=== PATIENT | female | born 1950 | race Caucasian/White ===

== ENCOUNTER 2024-03-06 03:03 | Inpatient (IN) | payer OTHER, SELFPAY ==
[2024-03-05 22:47] VITALS: BP 87/62
--- NOTE | 2024-03-05 23:13 | ED.GENMED ---
History of Present Illness
General
Chief Complaint: Change in Mental Status
Source: patient and family
Exam Limitations: none
Time Seen by Provider: 03/05/24 23:02
History of Present Illness
History of Present Illness:
See MDM
Past History
Past History
ED Past Medical History: None
ED Past Surgical History: None
Social History
Tobacco: Non-smoker
Alcohol: None
Phy Exam
Physical Exam
Physical Exam:
See MDM
Sepsis
Sepsis Screening
Sepsis Assessment: Severe Sepsis
Sepsis Screening: Hypotension and Sustained Hypotension-SBP <90,MAP<65, or SBP decrease 40mmHg or more
Sepsis Screen
Sepsis Screen: Severe Sepsis
Date: 03/06/24
Time: 00:15
Course
Orders/Labs/Results
Orders:
Orders
03/05/24 23:12
EKG [Electrocardiogram (*1)] Urgent
Reason for Study: Palpitations
EKG- Treatment ONCE
03/05/24 23:13
0.9% Sodium Chloride 1000 ml [Nss] 1,000 ml IV BOLUS
03/05/24 23:16
EKG [Electrocardiogram (*1)] Urgent
Reason for Study: Tachycardia
EKG- Treatment ONCE
03/05/24 23:52
CPK [Creatine Phosphokinase] Urgent
Complete Blood Count/With Diff Urgent
Comprehensive Metabolic Panel Urgent
Magnesium Urgent
TSH Reflex To Free T4 Urgent
Urinalysis Reflex To Culture Urgent
Date Specimen was Collected: 03/05/24
Time Specimen was Collected: 23:50
Urine Microscopic Reflex Cult Urgent
Urine Culture Urgent
RAZ Source: U
Specimen Description:
Date Specimen was Collected: 03/05/24
Time Specimen was Collected: 23:50
03/06/24 00:27
CR Chest - 2 Views Urgent
Comment:
Reason For Exam: SOB
03/06/24 00:49
Lactic Acid Urgent
03/06/24 00:50
0.9% Sodium Chloride 1000 ml [Nss] 1,000 ml IV BOLUS
03/06/24 00:53
0.9% Sodium Chloride 1000 ml [Nss] 1,000 ml IV BOLUS
03/06/24 00:54
*Vancomycin 2,000 mg Loading Dose (consider for >/= 70 kg) Vancomycin [Vancocin] 2,000 mg 0.9% Sodium Chloride 500 ml [Nss] 500 ml IV NOW
Zosyn 3.375 grams IVPB NOW Piperacillin/Tazo 3.375 Gram [Zosyn] 3.375 gram in 50 ml IV NOW
03/06/24 01:00
CT Head W/o Iv Contrast Urgent
Reason For Exam: altered
Lactic Acid Q4H
Comment: CANCEL 2nd LACTIC ACID IF 1st LACTIC ACID IS LESS THAN 2
03/06/24 05:00
Lactic Acid Q4H
Comment: CANCEL 2nd LACTIC ACID IF 1st LACTIC ACID IS LESS THAN 2
Abnormal Lab Results
03/05/24
23:52
WBC 49.0 H* 10^3/uL
(4.8-10.8)
RBC 5.62 H 10^6/uL
(4.20-5.40)
MCV 80.6 L fL
(81.0-99.0)
RDW 15.7 H %
(11.5-14.5)
MPV 11.0 H fL
(7.4-10.4)
Abs Immat Gran (auto) 1.6 H 10^3/uL
(0-0.05)
Absolute Neuts (auto) 44.7 H 10^3/uL
(1.4-6.5)
Absolute Monos (auto) 1.1 H 10^3/uL
(0.1-0.6)
Immature Gran % 3.3 H %
(0-0.5)
Neutrophils % 91.3 H %
(42.2-75.2)
Lymphocytes % 3.1 L %
(20.5-51.1)
Sodium 130 L mmol/L
(135-145)
Chloride 88 L mmol/L
(98-107)
BUN 62 H mg/dl
(7-17)
Creatinine 1.6 H mg/dL
(0.6-1.0)
Glucose 154 H mg/dl
(70-99)
Calcium 8.3 L mg/dl
(8.4-10.2)
Magnesium 2.6 H mg/dl
(1.6-2.3)
AST 80 H U/L
(14-36)
Alkaline Phosphatase 166 H U/L
(38-126)
Creatine Kinase 413 H U/L
(30-135)
Total Protein 5.9 L g/dl
(6.3-8.2)
Albumin 2.8 L g/dl
(3.5-5.0)
Urine Ketones Trace A
(Negative)
Ur Occult Blood Reflex 2+ A
(Negative)
Urine Bilirubin 1+ A
(Negative)
Leukocyte Esterase Rfl Trace A
(Negative)
Urine RBC 11-15 A /HPF
(0-2)
Urine Bacteria (Reflex) Many A
(Negative)
03/05/24 23:52
03/05/24 23:52
Vital Signs
Initial and Last Documented VS:
Initial Vital Signs
Temp BP
97.7 F 87/62
03/05/24 22:47 03/05/24 22:47
Last Documented Vital Signs
Temp Pulse Resp BP Pulse Ox
99.4 F 83 17 84/58 96
03/05/24 23:11 03/06/24 00:29 03/06/24 00:29 03/06/24 00:29 03/06/24 00:29
MDM/Problems Addressed
Differential Diagnosis Includes:
HPI and MDM Narrative:
73-year-old female presenting with family for evaluation of weakness, fatigue and altered mental status. On arrival, patient found to have pale and blue and cool extremities. Patient is smiling and offering no complaints. Family indicating that
she has a learning disability but is self-sufficient lives on her own. However, family is worried that she is having trouble caring for self. Patient found to be tachycardic. It is possible that her cardiac arrhythmia is causing decreased preload
and causing the cool and mottled skin. She is afebrile.
Will give IV fluids and obtain EKG to assess the cardiac arrhythmia discussed whether or not this is A-fib versus SVT
Physical exam
General: Well appearing and non-toxic
HEENT: protecting airway. Dry mucous membrane
Neck: appears supple
CV: No evidence of cyanosis. Tachycardic and regular
Resp: No accessory muscle use
Abd: Non-distended
Extremities: No deformities
Neuro: alert. No focal deficits
Psych: Normal affect
Skin: Cool and pale distal extremities
Problems Addressed including Acute and Chronic Conditions affecting care:
1. Altered mental status
Acuity: acute
Prognosis: stable
Details: Given the fall, will obtain CT head
2. Tachycardia
Acuity: acute
Prognosis: stable
Details: Will obtain EKG and decide whether this is A-fib with RVR versus SVT
3. Pneumonia
Acuity: acute
Prognosis: stable
Details: Patient started on IV antibiotics
4. [ ]
Acuity: acute
Prognosis: stable
Details:
5. [ ]
Acuity:
Prognosis:
Details:
Updates
11:20 PM EKG consistent with SVT. Right after the EKG, patient auto converted to sinus rhythm
Patient intermittently goes into sinus rhythm and SVT. Blood work returning showing significant leukocytosis. Blood pressure remains low despite IV fluids. Will continue IV fluids and obtain lactic acid. Chest x-ray concerning for left lower
lobe pneumonia. Will start IV antibiotics and
Differential Diagnosis (but not limited to): A-fib with RVR, SVT, TIA
Testing considered: Troponin
Drug therapy (if applicable): OTC meds, please see d/c instruction regarding Rx drugs
Amount and/or Complexity of Data Reviewed
Clinical info obtained from: Patient
External data reviewed: N/A
Labs I independently reviewed (but not limited to): Leukocytosis
Radiology: X-ray independently reviewed: Left lower lobe pneumonia
Pulse Ox: not hypoxic
EKG independently reviewed: SVT, normal axis, no STEMI
Screen Printer: Tachycardic and regular
Critical Care: N/A
Risk of Complication:
Social Determinants of health: Good social support
Discussed with other providers: Hospitalist
Escalation of Care includes Admit/Obs: Given significant lab abnormalities and concern for pneumonia, will
Occasional wrong word or 'sound a like' substitutions may have occurred due to the inherent limitations of voice recognition software. Read the chart carefully and recognize, using context, where substitutions have occurred.
*Critical Care Note
Total Time (30-74mins, 75-104mins- exclusive of procedures): Not Applicable
ED Attending Note
-
Portions of this chart may have been created with voice recognition software.� Occasional wrong word or��sound alike� substitutions may have occurred due to the inherent limitations of voice recognition software.
Discharge Plan
Departure
Patient Disposition: Admit
Date of Disposition: 03/06/24
Time of Disposition: 00:56
Admit to: IMU
Presentation/result/management discussed w/ accepting MD/DO: Hospitalist
Discharge Problem:
PNA (pneumonia), SVT (supraventricular tachycardia)
Prescriptions:
No Action
anastrozole 1 mg Tablet
1 mg PO DAILY
paroxetine HCl 10 mg Tablet
10 mg PO DAILY
omeprazole 20 mg Capsule,Delayed Release(Dr/Ec)
20 mg PO DAILY
calcium 100 mg Capsule
1,500 mg PO DAILY
cholecalciferol (vitamin D3) [Vitamin D3] 50 mcg (2,000 unit) Capsule
50 mcg PO DAILY
Trianterene-Hctz
37.5
Referrals:
Julieta Avelar MD [Family Provider] -
Interventions
Interventions:
*Risk Screen - Suicide Last Done: 03/05/24 22:47
*General Assessment Last Done: 03/05/24 22:47
*Neglect/Abuse Screening Last Done: 03/05/24 22:47
*ED COVID-19 Vaccine History Last Done: 03/05/24 22:47
ED- Pulmonary Assessment Last Done: 03/05/24 23:30
ED- Neurological Assessment Last Done: 03/05/24 23:30
ED- Cardiac Assessment Last Done: 03/05/24 23:30
Discharge Date and Time
Print Language: BELARUSIAN
[2024-03-05 23:20] VITALS: BMI 28.6
[2024-03-05 23:22] VITALS: BP 83/54
[2024-03-05] MEDS: NSS 1000 IV (23:42)
[2024-03-05 23:44] VITALS: BP 68/48
[2024-03-05 23:55] VITALS: BP 71/45
[2024-03-06] VITALS (91 sets, daily range): BP systolic 72–137; BP diastolic 38–112; BMI 29.8
[2024-03-06 00:08] LABS: Urine Albumin Trace (Neg - Trace); Urine Bilirubin 1+ (Negative); Urine Character Slightly Cloudy (Clear); Urine Color Yellow; Urine Glucose Negative (Negative); Urine Ketone Trace (Negative); Urine Leukocyte Trace (Negative); Urine Nitrite Negative (Negative); Urine Occult Blood 2+ (Negative); Urine Urobilinogen Negative (Neg - 1+)
[2024-03-06 00:15] LABS: Hematocrit 45.3 % (37.0-47.0); Hemoglobin 15.2 g/dL (12.0-16.0); Mean Corp Hgb Conc. 33.6 g/dL (33.0-37.0); Mean Corpuscular Volume 80.6 fL (81.0-99.0); Platelet Count 321 10^3/uL (130-400); Red Blood Cell Count 5.62 10^6/uL (4.20-5.40); Red Cell Dist. Width 15.7 % (11.5-14.5)
[2024-03-06 00:16] LABS: Urine Bacteria Many (Negative)
[2024-03-06 00:37] LABS: % Basophils 0.1 % (0-2); % Immature Granulocytes 3.3 % (0-0.5); % Lymphocytes 3.1 % (20.5-51.1); % Monocytes 2.2 % (1.7-9.3); % Neutrophils 91.3 % (42.2-75.2); Absolute Basophils 0.1 10^3/uL (0-0.2); Absolute Immature Granulocytes 1.6 10^3/uL (0-0.05); Absolute Lymphocytes 1.5 10^3/uL (1.2-3.4); Absolute Monocytes 1.1 10^3/uL (0.1-0.6); Absolute Neutrophils 44.7 10^3/uL (1.4-6.5); Nucleated Red Blood Cells % 0 %
[2024-03-06 00:38] LABS: ALT (SGPT) 26 U/L (0-35); AST (SGOT) 80 U/L (14-36); Albumin 2.8 g/dl (3.5-5.0); Alkaline Phosphatase 166 U/L (38-126); Blood Urea Nitrogen 62 mg/dl (7-17); Calcium 8.3 mg/dl (8.4-10.2); Carbon Dioxide 29 mmol/L (22-30); Chloride 88 mmol/L (98-107); Creatine Phosphokinase 413 U/L (30-135); Estimated Creatinine Clearance 31 ml/min; Glucose 154 mg/dl (70-99); Magnesium 2.6 mg/dl (1.6-2.3); Potassium 3.6 mmol/L (3.5-5.1); Sodium 130 mmol/L (135-145); Total Bilirubin 0.5 mg/dl (0.2-1.3); Total Protein 5.9 g/dl (6.3-8.2); eGFR 34.27
[2024-03-06] MEDS: NSS 1000 IV ×3 (00:50→12:36)
[2024-03-06] MEDS: ZOSYN 50 IV ×4 (01:00→18:32)
[2024-03-06] MEDS: VANCOCIN 540 MG IV (01:01)
[2024-03-06] MEDS: LEVOPHED 250 IV ×3 (01:43→15:07)
[2024-03-06 01:58] LABS: TSH Reflex To Free T4 1.76 uIU/ml (0.47-4.68)
[2024-03-06 01:59] LABS: Lactic Acid 2.3 mmol/L (0.7-2.0)
--- NOTE | 2024-03-06 02:08 | HPS.HSE ---
Family Physician
-
Family Physician: Julieta Avelar
Chief Complaint
-
Altered mental status and recent fall
History of Present Illness
This is a 73-year-old female with past medical history significant for breast cancer status post left mastectomy, chemotherapy and radiation, history of GERD, hypertension, anemia as well as mild to moderate intellectual developmental delay will
lives independently and was brought to the emergency department by family following being found down at home.
Patient claimed that she had a fall.� The exact circumstances of the fall is unclear.� According to sister who is POA, the patient has been having some altered mental status over the last few days.� The last time she saw the patient physically the
patient had an episode of bowel incontinence after a meal x 1 but no diarrhea.� She seemed to be more sluggish in her speech pattern.� She seems to have more blank skewed stairs and has been mostly sitting down instead of ambulating with a walker as
she usually does. She reported that she called her on the phone today and she did not sound her normal self. She had another family member check up on her and patient was found down laying on her abdomen. She was responsive. They could not get
an immediate pulse rate or pulse oximetry. As the patient was far from usual self she was brought to ED for further evaluation.
Patient herself denies all symptoms and only answers no to any questions regarding her wellbeing. She does not endorse cough, fevers, chills, headaches, abdominal pain, nausea, vomiting or diarrhea. She does not endorse any joint swelling, aches
or pain. She does not endorse dysuria, incontinence or frequency.
On arrival in the emergency department patient had intermittent episodes of supraventricular tachycardia with heart rate as high as 167. It was regular. She is currently in normal sinus rhythm. Blood pressure 80/50 with a pulse of 87 and satting
99% on room air. She has a low-grade temp of 99.4. White count was 49 hemoglobin 13 platelet count 321. Electrolytes and BUN/creatinine elevated at 60/1.6. U/A was unremarkable. CK 413, AST 80 and alkphos 150. Lactate 2.3. X-ray of the had
streaking artifacts from the breast implant, could not exclude focal infiltrates in the left lung but as currently its unrevealing.
Medical History
Past Medical History
Past Medical History: Reports Cancer (Breast cancer status post radical mastectomy on the left, XRT and chemotherapy with eventual breast reconstruction surgery and discharge from oncology over 2 years ago.), GERD and HTN
Past Surgical History: Reports Other (Left breast mastectomy)
Social History
Tobacco: Non-smoker
Alcohol: None
Drug: None
Personal: Single
Living: Alone
Employment: Disabled
Family History
Family History: Not pertinent
Allergies / Home Medications
Allergies reflects when Allergies were last updated in [facility].
Home Medications with original date entered in [facility]
Allergy/Medication List:
Allergies
Allergy/AdvReac Type Severity Reaction Status Date / Time
No Known Allergies Allergy Verified 03/05/24 23:43
Home Medications
Trianterene-Hctz 37.5 03/06/24
anastrozole 1 mg tablet 1 mg PO DAILY 03/06/24
calcium 100 mg capsule 1,500 mg PO DAILY 03/06/24
cholecalciferol (vitamin D3) 50 mcg (2,000 unit) capsule (Vitamin D3) 50 mcg PO DAILY 03/06/24
omeprazole 20 mg capsule,delayed release 20 mg PO DAILY 03/06/24
paroxetine HCl 10 mg tablet 10 mg PO DAILY 03/06/24
Review of Systems
-
History Source: Patient and Family
Constitutional: Reports No Symptoms
EENT: Reports No Symptoms
Respiratory: Reports No Symptoms
Cardiac: Reports No Symptoms
Abdomen/GI: Reports No Symptoms
: Reports No Symptoms
Musculoskeletal: Reports No Symptoms
Skin: Reports No Symptoms
Neurological: Reports Weakness and Other (altered speech)
Endocrine: Reports No Symptoms
Hematologic/Lymphatic: Reports No Symptoms
Psych: Reports No Symptoms
Physical Exam
Vital Signs
Vital Signs
Temp Pulse Resp BP Pulse Ox
99.4 F 83 17 84/58 96
03/05/24 23:11 03/06/24 00:29 03/06/24 00:29 03/06/24 00:29 03/06/24 00:29
Physical Exam
General: No Apparent Distress, Comfortable and Slurred Speech
HEENT: NormoCephalic, Anicteric, Moist mucous membranes, PERRLA, Neck Nontender and Other (reduced range of motion in the neck on all axis); No Neck Mass
Respiratory: Clear
Cardiac: S1/S2 and Regular Rhythm
Breast: Deferred by me
GI: Soft, Non Tender, Non Distended and Normal Bowel Sounds
Rectal: Deferred by Provider
Genito-urinary: Clear Urine
Musculoskeletal: No Clubbing, No Cyanosis and No Edema
Skin: Warm
Neuro: Alert, Oriented (oriented to person and place), Nonfocal/grossly intact and Slurred Speech (delayed responses suggestive of expressive aphasia. No obvious dysarthria. )
Hematologic/Lymphatic: No Lymphadenopathy
Psych: Calm
Laboratory Results
-
03/05/24 23:52
03/05/24 23:52
Laboratory Results
Lactic Acid 2.3 mmol/L (0.7-2.0) H 03/06/24 00:53
Total Bilirubin 0.5 mg/dl (0.2-1.3) 03/05/24 23:52
AST 80 U/L (14-36) H 03/05/24 23:52
ALT 26 U/L (0-35) 03/05/24 23:52
Alkaline Phosphatase 166 U/L (38-126) H 03/05/24 23:52
Data Reviewed
-
Diagnostic Radiology: Image Personally Visualized and interpreted
Medical Tests (Nuc Med, Echo, EKG etc): Image Personally Visualized and interpreted
Lab Data: Labs Reviewed by me
Old Records: Reviewed
Impression/Plan
-
IMPRESSION:
This is a 73 y.o female with h/o breast ca s/p treatment who has moderate intellectual developmental delay and has been living alone for over 1 year now presents to ED for altered mental status and being found down at home. No trauma. Head CT is
negative. Found to be hypotensive with pallor discoloration of distal digits. Leukocytosis to 49. Lactate 2.3. BUN/Cr 60/1.6. CPK 400. Intermittent SVT. BP not particularly improved after 2 L NS. Started on broad spectrum abx.
PLAN:
1. Hypotension - Unclear etiology at this time. With the elevated WBC and lactate there is concern for sepsis. No recent hospitalizations. Unclear source as patient has no focal symptoms. No headache but limited neck ROM, cannot call it
meningitis. She is afebrile here.
- admit to imu
- will give total of 3 L NS and start LR at 100 ml/hr (i suspect significantly prerenal with BUN 60, Cr 1.6)
- blood cultures x 2
- continue IV vancomycin and zosyn for now
- check procalcitonin
- hold home bp meds
- check am cortisol. TSH normal
- CT chest
- ID consult
2. AMS - Worsening from baseline but no focal deficits on exam
- improve bp with fluids and pressors
- check covid and flu
- neurochecks q 6
- mri in am
3. SVT - intermittent SVT. Regular, likely reentrant. Lasts seconds
- telemetry for now
- control bp and give iv fluids
- consider cardiology consult if persistent
- keep K > 4, Mag > 2
4. Elevated LFT. AST 80. Alkphos elevated. H/O breast ca, no etoh.
- trend lft and alksphos
- trend cpk
- check ggt
PT eval
Case management
GI PPX - pantoprazole iv daily
DVT PPX - heparin sq q 8
Code status - DNR
--- NOTE | 2024-03-06 02:10 | DOWNTIME ---
There was a [employer] In Downtime on 03/06/2024 from 0100 to 03/06/2024 at 0205 . Downtime documentation of patient's care, including medication administrations, has been reconciled in the electronic record per guidelines. Refer to the
patient's paper chart under the miscellaneous tab to see printed paper medication records and downtime forms.
[2024-03-06 03:06] LABS: COVID-19 Antigen Negative (Negative)
[2024-03-06] MEDS: LR 1000 IV ×2 (03:50→16:16)
[2024-03-06] MEDS: NSS 500 IV (05:06)
[2024-03-06 05:11] LABS: Hematocrit 36.9 % (37.0-47.0); Hemoglobin 12.7 g/dL (12.0-16.0); Mean Corp Hgb Conc. 34.4 g/dL (33.0-37.0); Mean Corpuscular Hgb 28.1 pg (27.0-31.0); Mean Corpuscular Volume 81.6 fL (81.0-99.0); Mean Platelet Volume 11.4 fL (7.4-10.4); Platelet Count 294 10^3/uL (130-400); Red Blood Cell Count 4.52 10^6/uL (4.20-5.40); Red Cell Dist. Width 15.5 % (11.5-14.5); White Blood Cell Count 49.9 10^3/uL (4.8-10.8)
--- NOTE | 2024-03-06 05:24 | W.PN.UPDATE ---
Update Note
Progress Note Update
RN notified [employer], BP 78/46 map of 57. Increased Levophed drip to 10mcg, on LR 100cc/hr. Asymptomatic. Will add 500 CC NSS, Bladder scan, Albumin 25g and Transfer to ICU per protocol.
[2024-03-06 05:27] LABS: Lactic Acid 1.5 mmol/L (0.7-2.0)
[2024-03-06 05:29] LABS: Creatine Phosphokinase 346 U/L (30-135)
[2024-03-06] MEDS: FLEXBUMIN 100 IV ×2 (05:37→11:22)
[2024-03-06 06:08] LABS: Procalcitonin 2.16 ng/ml (0.0-0.25)
[2024-03-06] MEDS: HEPARIN 5000 UNITS SC ×3 (07:59→23:58)
[2024-03-06] MEDS: PROTONIX IV 40 MG IV (08:00)
--- NOTE | 2024-03-06 08:13 | PHA.VAN.IN ---
Assessment
- Assessment
Renal Function: Unknown baseline
Concomitant Antimicrobials: piperacillin/tazobactam
Plan
- Plan
Initial / Loading Dose: 2000mg - 03/06 01:01
Maintenance Regimen: dosing by level
Monitoring: random 03/07 06
Pharmacokinetics Vancomycin I
- -
Patient Age: 73
Patient Sex: Female
Vancomycin Day #: 1
Indication: Pulmonary/Respiratory
Requesting Provider: Dr. Gotti
Pertinent Antimicrobial Allergies:
NKDA
Height / Weight:
Height 5 ft 3 in
Actual Weight 73.1 kg
- Vital Signs / Lab Results
Temp Pulse Resp BP Pulse Ox
97.0 F 82 15 94/44 90
03/06/24 07:52 03/06/24 06:00 03/06/24 02:45 03/06/24 05:45 03/06/24 06:00
Lab Results - Hematology
03/05/24 03/06/24
23:52 04:50
WBC 49.0 H* 49.9 H*
Lab Results - Chemistry
03/05/24
23:52
BUN 62 H
Creatinine 1.6 H
Estimated Creat Clear 31
Albumin 2.8 L
03/06/24 03/06/24 03/06/24
00:53 01:00 04:50
Lactic Acid 2.3 H Cancelled 1.5
Lab Results - Urine
03/05/24
23:52
Urine Nitrite (Reflex) Negative
Leukocyte Esterase Rfl Trace A
Urine WBC (Reflex) 6-10
Ur Squamous Epith Cells 3-5
Urine Bacteria (Reflex) Many A
Microbiology Results
03/06/24 02:37 Influenza Types A & B (BETHEL) - Final
Nasal Swab Negative for Influenza A & B, NAAT
Negative results must be combined with clinical observations
and patient history.
Nucleic Acid Amplification test (NAAT)performed on the
[employer] platform.
--- NOTE | 2024-03-06 08:30 | CON.INTV ---
Consultation
Consultation Request
Date/Time Consultation Requested: 03/06/2024
Date/Time Consultation Performed: 03/06/2024 - 828
Requesting Provider: Dr. Araiza
Performing Provider: Dr. Palma
Reason for Consultation: Shock on vasopressors
Medical History
-
Chief Complaint: Found on floor
History of Present Illness:
73-year-old female with a history of left-sided breast cancer s/p chemotherapy/XRT followed by reconstructive breast surgery, GERD, hypertension, intellectual developmental delay and anemia who presents with being found unresponsive on the floor.
According to the family, the patient has fallen a few times over the last few weeks. They believe that she fell prior to arrival as well and was on the floor for about 4-5 hours. History obtained from the sister, Rhea, and [id number], Kerwin.
Patient then brought to the ER for further evaluation. In the ER she was afebrile to 97.7 �F, pulse rate 167, breathing at 18 breaths/min, BP 87/62 and saturating 95% on room air. Initial EKG showed SVT. Labs showed leukocytosis to 49, Hb 15.2,
sodium 130, chloride 88, creatinine 1.6, lactate 2.3, AST 80, CK4 13, TSH 1.76, urinalysis showed trace leukocyte esterase and she was COVID-19 antigen negative. Urine and blood cultures were collected. Initial CXR showed subsegmental atelectasis.
Head CT showed no acute intracranial abnormality. Chest CT showed bilateral lower lobe subsegmental atelectasis with no evidence of pneumonia. In the ER she was given Zosyn, vancomycin, 3 L total of IVF NS 0.9%, and due to persistent hypotension
she was started on Levophed. She was admitted to the ICU for further care and kindergarten tutor services consulted for additional management/recommendations.
When I saw the patient this morning she was awake, in good spirits, with her sister, Rhea, and [id number], Kerwin, at bedside. Per the sister, she was not acting herself the day before coming here and she was having some slurred speech. She is
much more herself as of today. She says that she does not really take care of herself and has a history of increased LDL but does not take a cholesterol medication. She says yesterday her left breast also was increased in size, and that is the
breast that was reconstructed. Currently, heart rate 81, BP 105/56 and saturating 95% on 2 L/min.
PMHx: Breast cancer s/p left mastectomy, chemotherapy and radiation s/p reconstructive breast surgery, GERD, hypertension, anemia, intellectual developmental delay
PSHx: Reconstructive breast surgery (left) + left breast mastectomy
Past Medical History
Past Medical History: Other (Above as per HPI)
Past Surgical History: Other (Above as per HPI)
Social History
Tobacco: Non-smoker
Alcohol: None
Drug: None
Personal: Single
Living: Alone
Employment: Disabled
Family History
Family History: Reviewed & Not Pertinent
Allergies / Home Medications
Allergies
Allergy/AdvReac Type Severity Reaction Status Date / Time
No Known Allergies Allergy Verified 03/05/24 23:43
Home Medications
�Medication �Instructions �Recorded �Confirmed �Last Taken �Type
ascorbic acid (vitamin C) 500 mg 500 mg PO DAILY 03/06/24 03/06/24 Unknown History
tablet (Vitamin C)
calcium carbonate (Tums) 200 mg PO QIDPRN PRN gerd 03/06/24 03/06/24 Unknown History
latanoprost 0.005 % eye drops 1 drp BOTH EYES HS 03/06/24 03/06/24 Unknown History
naproxen sodium 220 mg tablet 220 mg PO BIDPRN PRN mild pain 03/06/24 03/06/24 Unknown History
(Aleve)
paroxetine HCl 10 mg tablet 10 mg PO DAILY 03/06/24 03/06/24 Unknown History
triamterene 37.5 1 tab PO DAILY 03/06/24 03/06/24 Unknown History
mg-hydrochlorothiazide 25 mg tablet
Review of Systems
-
History Source: Patient
All other systems: Negative unless noted
Vitals / Labs / Diagnostic Testing
Vital Signs
Temp Pulse Resp BP Pulse Ox
97.0 F 82 15 94/44 90
03/06/24 07:52 03/06/24 06:00 03/06/24 02:45 03/06/24 05:45 03/06/24 06:00
Lab Data
03/06/24 04:50
03/05/24 23:52
Microbiology
03/06/24 02:37 Nasal Swab Influenza Types A & B (BETHEL) - Final
Negative for Influenza A & B, NAAT
Negative results must be combined with clinical observations
and patient history.
Nucleic Acid Amplification test (NAAT)performed on the
[employer] platform.
Diagnostic Testing:
Physical Exam
-
HEENT: Normocephalic and Anicteric
Cardiovascular: S1/S2 and Peripheral Edema (negative)
Respiratory: Wheeze (negative), Rales (negative), Rhonchi (negative) and Non-Labored Respirations
GI: Soft, Non Distended, Non Tender and Normal Bowel Sounds
Neurology: Awake, Alert and Tremors (negative)
Skin: Warm and Dry
General: Respiratory Distress (negative), Comfortable, Fever (negative) and Chills (negative)
Assessment
-
Assessment: 73-year-old female with a history of left-sided breast cancer s/p chemotherapy/XRT followed by reconstructive breast surgery, GERD, hypertension, intellectual developmental delay and anemia who presents with being found unresponsive on
the floor. According to the family, the patient has fallen a few times over the last few weeks. They believe that she fell prior to arrival as well and was on the floor for about 4-5 hours. History obtained from the sister, Rhea, and
[id number], Kerwin. Patient then brought to the ER for further evaluation. In the ER she was afebrile to 97.7 �F, pulse rate 167, breathing at 18 breaths/min, BP 87/62 and saturating 95% on room air. Initial EKG showed SVT. Labs showed
leukocytosis to 49, Hb 15.2, sodium 130, chloride 88, creatinine 1.6, lactate 2.3, AST 80, CK4 13, TSH 1.76, urinalysis showed trace leukocyte esterase and she was COVID-19 antigen negative. Urine and blood cultures were collected. Initial CXR
showed subsegmental atelectasis. Head CT showed no acute intracranial abnormality. Chest CT showed bilateral lower lobe subsegmental atelectasis with no evidence of pneumonia. In the ER she was given Zosyn, vancomycin, 3 L total of IVF NS 0.9%,
and due to persistent hypotension she was started on Levophed. She was admitted to the ICU for further care and kindergarten tutor services consulted for additional management/recommendations.
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
Impression:
#Fall
#SVT in the ER - now in NSR
#Shock requiring vasopressors - likely hypovolemic; unlikely septic as no obvious UTI, no pneumonia on CT chest, and cortisol WNL
#Mild rhabdomyolysis
#Elevated Cr due to MEET vs CKD
#Hypochloremic, hyponatremia
#Leukocytosis � likely leukemoid reaction otherwise differential also includes undiagnosed myelodysplastic syndrome vs leukemia
#Lactic acidosis � now resolved
#Mild transaminitis
#Ambulatory dysfunction with multiple falls last few weeks
#Intellectual disability
#Left-sided breast cancer s/p chemo/XRT followed by reconstructive breast surgery
#History of GERD
#Hypertension
Plan:
- Continue with vasopressors and wean down Levophed as tolerated while maintaining MAP >65
- BP currently 91/64 on levophed at 10mcg/min
- If Levophed requirements increase, then willl start vasopressin
- Continue IVF with LR at 100cc/hr with stop date to avoid volume overload
- I checked a bedside ultrasound showing 16% IVC collapsibility, hence will not give any additional IV fluid boluses after repeat bolus earlier this morning
- Start midodrine in an attempt to get her off Levophed
- Cortisol level was 57 hence this rules out adrenal insufficiency
- Continue with broad-spectrum antibiotics with Zosyn/IV vancomycin
- Follow-up urine and blood cultures (NGTD)
- Trend WBC and monitor for fevers
- ID consulted for additional recs
- Maintain SpO2 >90-94% with supplemental O2 and wean down as tolerated
- Continue aspiration precaution
- Okay to resume patient's home medications of paroxetine and a sorbic acid
- Replete electrolytes with K>4, Mg>2
- Trend LFTs
- Trend sNa
- Maintain euglycemia with goal BG 140-180
- Trend H/H and transfuse if needed to keep Hb>7g/dL; keep plt>20k, unless there is concern for bleeding then keep plt>50k
- prn nebulized bronchodilators - not currently bronchospastic
- Incentive spirometer encouraged 10x per hour for at least 4 hrs a day
- DVT ppx: HSQ
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
Code status: Patient is DNR/DNI
Critical care statement: A total of 40 minutes of critical care time was provided for this patient today. This includes management of unstable vital signs, evaluation of the patient at bedside, reviewing the patient's pertinent medical records
including radiographs, microbiology, laboratory evaluations, and discussion with primary team, consultants, pharmacy, nutrition, physical therapy, case management, charge nurse, critical care nursing, and respiratory therapy.
--- NOTE | 2024-03-06 10:00 | PTCARENOTE ---
0900-Received pt from ED via stretcher.Pt is awake and alert.3-4/5 TAMAYO.Denies pain.Speech is appropriate.SR with short burst HR 145.Converted to SR spontaneously.IVF and Levophed gtts infusing.Decreased breath sounds bibasilar.O2 2l NC.POX
94%Appetite fair.Smear BM.Voided large amount yellow urine on bedpan.Skin breakdown present on bl toes.Pt's sister at bedside.Plan of care discussed.
--- NOTE | 2024-03-06 10:12 | W.PN.HOSP.TC ---
Today's Communication/Plan
-
Empiric antibiotics pending ID workup
Lactated Ringer per
Attempt to wean off pressor.
Assessment / Plan
Assessment / Plan
Impression:
SIRS, concern for evolving sepsis (tachycardia, low-grade fever, leukocytosis with left shift, hypotension)
Hypotension with concern for septic shock not responding to IV fluids and requiring vasopressor
Toxic metabolic encephalopathy secondary to above
Self limited episode of SVT.
Acute kidney injury
Lactic acidosis
Contraction alkalosis
Hyponatremia with hypovolemia
Abnormal LFT
Mild rhabdomyolysis, nontraumatic
Other conditions:
Essential hypertension
Breast carcinoma status posttreatment in remission.
Mild to moderate intellectual disability.
Plan:
SIRS, concern for sepsis with septic shock requiring vasopressors.
Presents with no respiratory or urinary symptoms.
COVID-19/influenza negative.
Urinalysis with microhematuria otherwise unremarkable
Chest x-ray and CT scan with no focal infiltrates
Reported loose stools as outpatient
Blood cultures pending
Urine cultures pending
Empiric antibiotics status post single dose of vancomycin, currently on Zosyn.
Lactated Ringer.
Initiated on Levophed, currently normotensive will attempt to wean
If diarrhea check for CT for norovirus
ID consultation
Trend WBC
Random serum cortisol and TSH appropriate
Altered mental status suspected secondary to toxic metabolic cephalopathy in the settings of fever and hypotension.
No focal findings on exam.
CT scan of the head with no acute abnormalities per
Continue neurologic monitoring for
Consider additional imaging if recurrent.
Self-limited episode of SVT.
Currently normal sinus rhythm.
Monitor.
Acute kidney injury suspect
Urinalysis relatively bland other than mild micro hematuria.
Lactic acidosis improving
Continue to challenge with isotonic solution.
Hold thiazide diuretic.
Hold NSAIDs
Mildly elevated transaminases AST at 80.
Suspect function of mild rhabdo. CPK trending down.
CODE STATUS DNR.
Anticipated Discharge: 24 - 48 hours
Subjective/Interval History
-
Date of Service: March 06, 2024
Objective Data
-
Labs:
Laboratory Results
03/05/24 03/06/24
23:52 04:50
WBC 49.0 H* 49.9 H*
Hgb 15.2 12.7
Hct 45.3 36.9 L
Plt Count 321 294
Sodium 130 L
Potassium 3.6
Chloride 88 L
Carbon Dioxide 29
BUN 62 H
Creatinine 1.6 H
Glucose 154 H
Calcium 8.3 L
Total Bilirubin 0.5
AST 80 H
ALT 26
Alkaline Phosphatase 166 H
Vital Signs:
Vital Signs
Temp Pulse Resp BP Pulse Ox
97.0 F 82 15 94/44 90
03/06/24 07:52 03/06/24 06:00 03/06/24 02:45 03/06/24 05:45 03/06/24 06:00
Physical Exam
-
General: Well Developed and No Apparent Distress
HEENT: Normocephalic, Atraumatic and Moist Mucous Membranes
Respiratory: Clear to Auscultation
Cardiac: Regular Rhythm and S1/S2; Negative Murmur, Rub or Gallop
GI: Soft, Nontender, Nondistended and Normal Bowel Sounds; Negative Organomegaly
Rectal: Deferred by Provider
Musculoskeletal: No Clubbing, No Cyanosis and No Edema
Skin: Negative Rash
Neuro: Nonfocal/Grossly Intact
[2024-03-06] MEDS: ProAmatine 10 MG PO (11:23)
--- NOTE | 2024-03-06 12:00 | PTCARENOTE ---
Pt assessed.No change in assessment noted.Right hand edematous.Levo remains at 10 mcg.PICC ordered.
--- NOTE | 2024-03-06 14:46 | CON.ID ---
Consultation
-
Date/Time Consultation Requested: 03/06/24 3:18
Date/Time Consultation Performed: 03/06/24 15:24
Requesting Provider: Dr Gotti
Performing Provider: Dr Johnson
Reason for Consultation: sepsis suspected
Chief Complaint / Past History
Chief Complaint
Altered mental status and recent fall
History of Present Illness
Ms Goldman is a plesant 73 year old feamle with history of breast cancer s/p L mastectomy, chemotherapy and radiation, mild-moderate intellectual developmental delay, living independently who was rhonda to the ER late 03/05 after being found down at
her home by family. Sister, SHANNAN, reported AMS over several days and had bowel incontinence (formed stool) after a meal, speech was slow and she was walking slower than usual. Patient today tells me she had 'the runs' at one point before she came
in and that her toes on both feet really hurt. She saw a sales representative printing paper, she thinks he did some clipping of her toe nails though they remain quite thick and long. There are abrasions on the dorsal surface of the toes - she cannot tell me how that
happened. The toes are mildly red and swollen on both feet around the wounds, again she cannot tell me what happened. Late yesterday a family member went to check on her and she was found laying face down, initially nonresponsive - later waking
up, and she was brought to the ER.
In the ER she had bursts of SVT to the 160s - regular, later converted to sinus rhythm. BP 80/50, pulse 87 and sating 97%, T 99.4. She was started on pressors. WBC 49, hgb 13, plt 321, L shift noted, na 130, cr 1.6crcl 31, lactic acid initially
2.3 now 1.5, procal 2.16, t bili 0.5, ast 80, alt 26, alk phos 166, EK 413, AM cortisol 57 elevated, UA minimal pyuria with 6-10 wbc/hpf and many bacteria, covid ag negative, blood cultures x2 in progress NGTD, MRSA screen negative, influenza
negative, urine culture pending, CT head w/o contrast: no acute abnormality, CT chest: bilateral atelectasis, CXR today PICC with progress LLL and new mild right lower lobe airspace consolidation - pneumonia, edema, aspiration on the differential.
Today she tells me she has a mild sore throat, marked pain in the bilateral feet/toes around the wounds, diarrhea x1 and malaise. Denies: headache, cough, sputum production, nausea, vomiting, constipation, dysuria, new joint pains, new rashes. No
pets, minimal time outside, not around any farm animals and no sick contacts.
Past History
Additional Past Medical History:
Breast cancer status post radical mastectomy on the left, XRT and chemotherapy with eventual breast reconstruction surgery and discharge from oncology over 2 years ago.), GERD and HTN
Additional Past Surgical History:
Left breast mastectomy
Allergy History:
No Known Allergies Allergy (Verified 03/05/24 23:43)
Medications Reviewed: Yes
Social History
Tobacco: Non-Smoker
Alcohol: None
Drug: None
Family History
Family History: Not Pertinent
Review of Systems
Review of Systems
General: Negative Fever or Chills
All systems: All other systems were reviewed and were negative
Vital Signs
Temp Pulse Resp BP Pulse Ox
97.0 F 74 23 97/48 94
03/06/24 07:52 03/06/24 14:15 03/06/24 14:15 03/06/24 14:15 03/06/24 14:15
Physical Exam
Physical Exam
Constitutional: No Acute Distress (unusual given her shock)
Cardiovascular: Regular Rate and S1/S2; Negative Murmur or Rub
Pulmonary: Clear and Symmetric; Negative Wheezes, Rales or Rhonchi
Gastrointestinal: Soft, Non Tender, Non Distended and Normal Bowel Sounds
Skin: Warm, Dry and Other (markedly thickened toe nails bilaterally); Negative Rash or Jaundice
Wound: Other (abrasions on the bilateral dorsal toes with surrounding erythema, no purulence, no fluctuance, small amount of dried blood around L proximal toenail but no open wound)
Neurological: Awake (smiling)
Psychological: Calm (and pleasant)
Lines: PICC
Lab / Diagnostic Study Results
03/06/24 04:50
03/05/24 23:52
Abs Immat Gran (auto) 1.6 10^3/uL (0-0.05) H 03/05/24 23:52
Absolute Neuts (auto) 44.7 10^3/uL (1.4-6.5) H 03/05/24 23:52
Absolute Lymphs (auto) 1.5 10^3/uL (1.2-3.4) 03/05/24 23:52
Absolute Monos (auto) 1.1 10^3/uL (0.1-0.6) H 03/05/24 23:52
Absolute Basos (auto) 0.1 10^3/uL (0-0.2) 03/05/24 23:52
Immature Gran % 3.3 % (0-0.5) H 03/05/24 23:52
Neutrophils % 91.3 % (42.2-75.2) H 03/05/24 23:52
Lymphocytes % 3.1 % (20.5-51.1) L 03/05/24 23:52
Monocytes % 2.2 % (1.7-9.3) 03/05/24 23:52
Eosinophils % 0.0 % (0-6) 03/05/24 23:52
Basophils % 0.1 % (0-2) 03/05/24 23:52
Lactic Acid 1.5 mmol/L (0.7-2.0) 03/06/24 04:50
Procalcitonin 2.16 ng/ml (0.0-0.25) H* 03/06/24 04:50
Ur Squamous Epith Cells 3-5 /LPF (Few) 03/05/24 23:52
Microbiology Results
Micro:
03/06/24 07:45 MRSA Screen - Pending
Nose
03/06/24 07:45 Blood Culture - Pending
Blood/Venous
03/06/24 07:45 Blood Culture - Pending
Blood/Venous
03/06/24 02:37 Influenza Types A & B (BETHEL) - Final
Nasal Swab Negative for Influenza A & B, NAAT
Negative results must be combined with clinical observations
and patient history.
Nucleic Acid Amplification test (NAAT)performed on the
[employer] platform.
03/05/24 23:52 Urine Culture - Pending
Urine
Assessment / Plan
Shock
Possible Sources: Cellulitis vs Diabetic Foot Infection (not a known diabetic), C Difficile, Developing Pneumonia (likely aspiration)
Leukemoid reaction
MEET
- wounds with surrounding cellulitis on the bilateral toes noted, possibly a group a strep infection; no crepitus, pain is moderate but within proportion to the the physical exam findings, no bullae, she is not known to have DM2 yet but has been
hyperglycemic - checking a1c, CT of the bilateral feet - without contrast given MEET
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
- note progressive findings on CXR as well though patient reporting no productive cough
- continue vancomycin/zosyn
- added clindamycin
- follow physical exam, pressor requirements, cbc and cmp
--- NOTE | 2024-03-06 15:27 | VATNOTE ---
Per radiology report, PICC tip in the distal 3rd of the SVC. OK to use, PCN notified of same. Asked PCN to remove all peripheral IVs from R arm and change all IV tubing prior to connecting to PICC.
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
--- NOTE | 2024-03-06 16:00 | PTCARENOTE ---
Pt assessed.No change in assessment noted.
[2024-03-06] MEDS: CLEOCIN 50 IV ×2 (16:11→23:58)
[2024-03-06] MEDS: ProAmatine 5 MG PO (18:32)
--- NOTE | 2024-03-06 20:00 | PTCARENOTE ---
Received pt from previous shift. Systems reviewed, see flowsheets. Took pt down for abd xray and CT b/l LE. Pt AAOx3, but seems to forget her situation in the hospital at times. NSR on heart monitor with prolonged QTc. SaO2= 93% on 2L NC. Levophed
gtt at 5mcg/18.8mL/hr and LR @ 100mL/hr through RUE double lumen PICC. Levophed titrated for MAP>65 per order. Pt with b/l UE restrictions due to L mastectomy hx and R PICC. BPs taken in L calf. Will obtain stool sample when able.
[2024-03-06] MEDS: TYLENOL 650 MG PO (20:35)
[2024-03-06 21:33] LABS: Blood Urea Nitrogen 38 mg/dl (7-17); Calcium 7.4 mg/dl (8.4-10.2); Carbon Dioxide 27 mmol/L (22-30); Chloride 95 mmol/L (98-107); Estimated Creatinine Clearance 42 ml/min; Glucose 169 mg/dl (70-99); Magnesium 2.1 mg/dl (1.6-2.3); Potassium 2.7 mmol/L (3.5-5.1); Sodium 128 mmol/L (135-145); eGFR 48.39
[2024-03-06] MEDS: KCL 100 IV (21:49)
[2024-03-07] VITALS (45 sets, daily range): BP systolic 86–146; BP diastolic 49–94; PULSE 86; O2SAT 94
--- NOTE | 2024-03-07 | PTCARENOTE ---
Systems reviewed, no changes in assessment at this time. BMP revealed K=2.7. FUNERAL HOME ASSISTANT Blas Cadet notified and 40mEq KCl infusing through RUE PICC.
[2024-03-07] MEDS: ZOSYN 50 IV ×2 (00:39→05:35)
[2024-03-07] MEDS: LEVOPHED 250 IV (03:34)
[2024-03-07] MEDS: LR 1000 IV (03:34)
--- NOTE | 2024-03-07 04:00 | PTCARENOTE ---
Systems reviewed. No changes in assessment, except oxygen increased to 3L NC.
[2024-03-07 04:28] LABS: Hematocrit 31.4 % (37.0-47.0); Hemoglobin 10.5 g/dL (12.0-16.0); Mean Corp Hgb Conc. 33.4 g/dL (33.0-37.0); Mean Corpuscular Hgb 27.8 pg (27.0-31.0); Mean Corpuscular Volume 83.1 fL (81.0-99.0); Platelet Count 261 10^3/uL (130-400); Red Blood Cell Count 3.78 10^6/uL (4.20-5.40); Red Cell Dist. Width 15.9 % (11.5-14.5); White Blood Cell Count 37.5 10^3/uL (4.8-10.8)
[2024-03-07 04:40] LABS: ALT (SGPT) 16 U/L (0-35); AST (SGOT) 42 U/L (14-36); Albumin 2.3 g/dl (3.5-5.0); Alkaline Phosphatase 97 U/L (38-126); Blood Urea Nitrogen 36 mg/dl (7-17); Calcium 7.6 mg/dl (8.4-10.2); Carbon Dioxide 28 mmol/L (22-30); Chloride 98 mmol/L (98-107); Estimated Creatinine Clearance 46 ml/min; Glucose 118 mg/dl (70-99); Magnesium 2.2 mg/dl (1.6-2.3); Potassium 3.3 mmol/L (3.5-5.1); Sodium 132 mmol/L (135-145); Total Bilirubin 0.3 mg/dl (0.2-1.3); Total Protein 4.8 g/dl (6.3-8.2); eGFR 53.72
[2024-03-07] MEDS: KCL 100 IV (04:51)
[2024-03-07 06:30] LABS: Vancomycin Random 11.8 ug/ml
[2024-03-07] MEDS: CLEOCIN 50 IV ×2 (07:38→17:17)
[2024-03-07] MEDS: ProAmatine 5 MG PO (07:39)
[2024-03-07] MEDS: HEPARIN 5000 UNITS SC (07:39)
[2024-03-07] MEDS: VITAMIN C 500 MG PO (07:40)
[2024-03-07] MEDS: PAXIL 10 MG PO (07:40)
--- NOTE | 2024-03-07 08:18 | W.PN.INTV ---
Today's Communication / Plan
Recommendations
Increase midodrine to 10 mg TID
Continue weaning down on Levophed
Maintain MAP >65
Antibiotics per ID
Podiatry consult
Continue trending LFTs + serum sodium
Replete K>4, Mg>2
Fall precautions
PT/OT
DNR/DNI
Continue ICU level care for this critically ill patient
Assessment
-
Assessment: 73-year-old female with a history of left-sided breast cancer s/p chemotherapy/XRT followed by reconstructive breast surgery, GERD, hypertension, intellectual developmental delay and anemia who presents with being found unresponsive on
the floor. According to the family, the patient has fallen a few times over the last few weeks. They believe that she fell prior to arrival as well and was on the floor for about 4-5 hours. History obtained from the sister, Rhea, and
[id number], Kerwin. Patient then brought to the ER for further evaluation. In the ER she was afebrile to 97.7 �F, pulse rate 167, breathing at 18 breaths/min, BP 87/62 and saturating 95% on room air. Initial EKG showed SVT. Labs showed
leukocytosis to 49, Hb 15.2, sodium 130, chloride 88, creatinine 1.6, lactate 2.3, AST 80, CK4 13, TSH 1.76, urinalysis showed trace leukocyte esterase and she was COVID-19 antigen negative. Urine and blood cultures were collected. Initial CXR
showed subsegmental atelectasis. Head CT showed no acute intracranial abnormality. Chest CT showed bilateral lower lobe subsegmental atelectasis with no evidence of pneumonia. In the ER she was given Zosyn, vancomycin, 3 L total of IVF NS 0.9%,
and due to persistent hypotension she was started on Levophed. She was admitted to the ICU for further care and mobile engineer services consulted for additional management/recommendations.
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
Impression:
#Fall
#SVT in the ER - now in NSR
#Shock requiring vasopressors -source includes UTI versus lower extremity cellulitis; feet appear infected via onychomycosis, with mild redness in the dorsal surface of the toes but nothing severe although cellulitis seen in the lower
extremities/feet on imaging. No pneumonia on CT chest, and cortisol WNL
#Mild rhabdomyolysis
#MEET
#Hyponatremia
#Leukocytosis � likely leukemoid reaction otherwise differential also includes undiagnosed myelodysplastic syndrome vs leukemia
#Lactic acidosis � now resolved
#Mild transaminitis
#Ambulatory dysfunction with multiple falls last few weeks
#Intellectual disability
#Left-sided breast cancer s/p chemo/XRT followed by reconstructive breast surgery
#History of GERD
#Hypertension
Plan:
- Continue with vasopressors and wean down Levophed as tolerated while maintaining MAP >65
- BP currently 125/62 on levophed at 3mcg/min
- If Levophed requirements increase, then will start vasopressin - since Levophed requirements are coming down no need for vasopressin at this time
- Continue IVF with LR at 100cc/hr with stop date to avoid volume overload
- I checked a bedside ultrasound on 03/06/2024 showing 16% IVC collapsibility, hence will not give any additional IV fluid boluses after repeat bolus earlier this morning
- Continue midodrine in an attempt to get her off Levophed - raise midodrine today to 10mg TID
- Cortisol level was 57 on admission, hence this rules out adrenal insufficiency
- Continue with broad-spectrum antibiotics with Zosyn/Clindamycin; IV vancomycin discontinued as MRSA swab is negative
- Follow-up urine and blood cultures (NGTD)
- Trend WBC and monitor for fevers
- ID consulted for additional recs
- Consult podiatry given appearance of her toes with concern for chronic onychomycosis
- Maintain SpO2 >90-94% with supplemental O2 and wean down as tolerated
- Continue aspiration precautions
- Okay to resume patient's home medications of paroxetine and ascorbic acid
- Replete electrolytes with K>4, Mg>2
- Trend LFTs
- Trend sNa
- Maintain euglycemia with goal BG 140-180 with ISS AC
- Trend H/H and transfuse if needed to keep Hb>7g/dL; keep plt>20k, unless there is concern for bleeding then keep plt>50k
- prn nebulized bronchodilators - not currently bronchospastic
- Incentive spirometer encouraged 10x per hour for at least 4 hrs a day
- DVT ppx: HSQ --> LMWH now that MEET improving
Code status: Patient is DNR/DNI
Continue ICU level care for this critically ill patient.
Critical care statement: A total of 38 minutes of critical care time was provided for this patient today. This includes management of unstable vital signs, evaluation of the patient at bedside, reviewing the patient's pertinent medical records
including radiographs, microbiology, laboratory evaluations, and discussion with primary team, consultants, pharmacy, nutrition, physical therapy, case management, charge nurse, critical care nursing, and respiratory therapy.
Subjective Dataa
Subjective Data
Date of Service:
Date of Service: March 07, 2024
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
Subjective:
Patient seen and evaluated this AM. No diarrhea reported from overnight. Remains on Levophed at 2 mcg/min. She remains in good spirits, currently on 3 L/min and saturating 98%. She denies chest pain, BERNARD, nausea, fevers or chills. Afebrile
overnight.
Review of Systems
General: Other (Negative unless mentioned above)
Objective Data
Data Reviewed
Vital Signs / I&O / Oxygen:
Vital Signs
Temp Pulse Resp BP Pulse Ox
98.2 F 78 24 129/67 94
03/07/24 03:33 03/07/24 08:30 03/07/24 08:30 03/07/24 08:30 03/07/24 08:30
Intake and Output
03/06/24 03/07/24 03/08/24
06:59 06:59 06:59
Intake Total 3837.2 / 3948.5 222.6 / 222.6
Balance 3837.2 / 3948.5 222.6 / 222.6
SaO2 94
Nasal Cannula flow liters per 3
minute
Physical Exam
General: Respiratory Distress (negative), Comfortable, Chills (negative) and Sweats (negative)
HEENT: Normocephalic and Anicteric
Cardiovascular: S1-S2 and Peripheral Edema (+1 lower extremity pitting edema bilaterally)
Respiratory: Clear, Wheeze (negative), Crackles (negative), Rhonchi (negative), Non-Labored Respirations and Stridor (negative)
GI: Soft, Non Distended, Non Tender and Normal Bowel Sounds
Neurology: Awake, Alert and Tremors (negative)
Skin: Warm, Dry, Cyanosis (negative) and Jaundice (negative)
Labs/Micro/Reports
Lab Data
03/07/24 03:43
03/07/24 03:43
Microbiology
03/06/24 07:45 Nose MRSA Screen - Final
No Methicillin Resistant Staphylococcus aureus isolated.
03/06/24 07:45 Blood/Venous Blood Culture - Preliminary
No Growth in 24 hours- Final report to follow
03/06/24 07:45 Blood/Venous Blood Culture - Preliminary
No Growth in 24 hours- Final report to follow
03/06/24 02:37 Nasal Swab Influenza Types A & B (BETHEL) - Final
Negative for Influenza A & B, NAAT
Negative results must be combined with clinical observations
and patient history.
Nucleic Acid Amplification test (NAAT)performed on the
[employer] platform.
[2024-03-07 08:32] LABS: Glycohemoglobin (HgbA1c) 6.4 % (4.0-5.6)
--- NOTE | 2024-03-07 09:02 | W.PN.ID1 ---
Date of Service
Date of Service: March 07, 2024
Today's Communication
preformed breast exam at POA request - GARRY Barlow served as diagnostic medical sonographer - L breast consistent with reconstruction without evidence of infection, R breast consistent with normal aging also no evidence of infection. I agree that they are notably
different and could understand why she feels concerned. Rhea confirms that she hasnt seen Barbaras breasts prior to the visit. Discussed my findings with Rhea later this afternoon around 5 pm. My opinion is that there is no evidence of
infection on my exam and that the difference, the left breast is firm, 'perky' and perhaps a cup size larger than the right breast. I feel that she has age related changes on the right. On my chart review I dont see notes from MDs or RNs about a
breast exam or concerns for L breast infection. Rhea was not reassured by my opinion and I have asked if one of our plastic surgeons if available to assess the patient. I do not see any plastic surgeons as listed as automation mechanic for DH today or
tomorrow. If no plastic surgeon is available then I asked if outpatient follow up could be arranged. Note that her breast surgeon has .
Assessment / Plan
Shock - resolving
BL Diabetic Foot Infections - suspect with component of group A strep
Leukemoid reaction
MEET
- agree with ABIs
- continue zosyn
- continue clindamycin today, likely stop tomorrow if further clinical improvement
- follow physical exam, pressor requirements, cbc and cmp
preformed breast exam at POA request - GARRY Barlow served as diagnostic medical sonographer - L breast consistent with reconstruction without evidence of infection, R breast consistent with normal aging also no evidence of infection. I agree that they are notably
different and could understand why she feels concerned. Rhea confirms that she hasnt seen Barbaras breasts prior to the visit. Discussed my findings with Rhea later this afternoon around 5 pm. My opinion is that there is no evidence of
infection on my exam and that the difference, the left breast is firm, 'perky' and perhaps a cup size larger than the right breast. I feel that she has age related changes on the right. On my chart review I dont see notes from MDs or RNs about a
breast exam or concerns for L breast infection. Rhea was not reassured by my opinion and I have asked if one of our plastic surgeons if available to assess the patient. I do not see any plastic surgeons as listed as automation mechanic for today or
tomorrow. If no plastic surgeon is available then I asked if outpatient follow up could be arranged. Note that her breast surgeon has .
Chief Complaint
-: Cellulitis and Other (shock)
Subjective / Review of Systems
afebrile
pressors rapidly being weaned today
incontinent of small smear - no jone diarrhea
in good spirits
denies foot pain
called rhea - POA/sister and gave update - call took 15 minutes, reviewed case
preformed breast exam at POA request - GARRY Barlow served as diagnostic medical sonographer - L breast consistent with reconstruction without evidence of infection, R breast consistent with normal aging also no evidence of infection. I agree that they are notably
different and could understand why she feels concerned. Rhea confirms that she hasnt seen Barbaras breasts prior to the visit. Discussed my findings with Rhea later this afternoon around 5 pm. My opinion is that there is no evidence of
infection on my exam and that the difference, the left breast is firm, 'perky' and perhaps a cup size larger than the right breast. I feel that she has age related changes on the right. On my chart review I dont see notes from MDs or RNs about a
breast exam or concerns for L breast infection. Rhea was not reassured by my opinion and I have asked if one of our plastic surgeons if available to assess the patient. I do not see any plastic surgeons as listed as automation mechanic for today or
tomorrow. If no plastic surgeon is available then I asked if outpatient follow up could be arranged. Note that her breast surgeon has .
Vital Signs / Physical Exam
Vital Signs
Vital Signs
Temp Pulse Resp BP Pulse Ox
98.2 F 78 24 129/67 94
03/07/24 03:33 03/07/24 08:30 03/07/24 08:30 03/07/24 08:30 03/07/24 08:30
Physical Exam
Constitutional: No Acute Distress
Cardiovascular: Regular Rate and S1/S2; Negative Murmur or Rub
Pulmonary: Clear and Symmetric; Negative Wheezes or Rales
Gastrointestinal: Soft, Non Tender, Non Distended and Normal Bowel Sounds
Genito-Urinary: Other (L breast firm, round c/w reconstruction; R breast soft, deflated consistent with normal aging. No erythema, warmth, tenderness or fluctuance of either breast.)
Skin: Warm, Dry and Rash; Negative Jaundice
Neurological: Awake
Objective Data
Lab Data
Lab Results
03/07/24 03:43
03/07/24 03:43
Estimated Creat Clear 46 ml/min 03/07/24 03:43
Lactic Acid 1.5 mmol/L (0.7-2.0) 03/06/24 04:50
Total Bilirubin 0.3 mg/dl (0.2-1.3) 03/07/24 03:43
AST 42 U/L (14-36) H 03/07/24 03:43
ALT 16 U/L (0-35) 03/07/24 03:43
Alkaline Phosphatase 97 U/L (38-126) 03/07/24 03:43
Most recent labs reviewed.
A1c 6.4
Micro Results:
03/06/24 07:45 MRSA Screen - Final
Nose No Methicillin Resistant Staphylococcus aureus isolated.
03/06/24 07:45 Blood Culture - Preliminary
Blood/Venous No Growth in 24 hours- Final report to follow
03/06/24 07:45 Blood Culture - Preliminary
Blood/Venous No Growth in 24 hours- Final report to follow
03/06/24 02:37 Influenza Types A & B (BETHEL) - Final
Nasal Swab Negative for Influenza A & B, NAAT
Negative results must be combined with clinical observations
and patient history.
Nucleic Acid Amplification test (NAAT)performed on the
[employer] platform.
03/05/24 23:52 Urine Culture - Pending
Urine
[2024-03-07 09:07] LABS: % Basophils 0.4 % (0-2); % Eosinophils 0.1 % (0-6); % Immature Granulocytes 3.1 % (0-0.5); % Lymphocytes 3.1 % (20.5-51.1); % Monocytes 2.5 % (1.7-9.3); % Neutrophils 90.8 % (42.2-75.2); Absolute Basophils 0.2 10^3/uL (0-0.2); Absolute Immature Granulocytes 1.2 10^3/uL (0-0.05); Absolute Lymphocytes 1.2 10^3/uL (1.2-3.4); Absolute Monocytes 0.9 10^3/uL (0.1-0.6); Nucleated Red Blood Cells % 0 %
--- NOTE | 2024-03-07 09:16 | PTCARENOTE ---
Received pt awake and alert.Oriented x 3.+4/5 TAMAYO.Assists with repositioning.c/o vague,tolerable leg pain.SR noted.IVF and Levophed gtt infusing via right PICC.Decreased breath sounds bibasilar.O2 3l NC.POX 94%Appetite good.Incontinent of
small/smear brown BM that was not enough quantity to send a specimen.Has not voided at this time.Skin integrity as documented.Plan of care discussed with pt.
--- NOTE | 2024-03-07 09:59 | PHA.VAN.FU ---
Vancomycin Assessment / Plan
- Assessment
Renal Function: SCR Decreasing
WBC's are: Trending Down
In the past 24 hrs, patient has been: Afebrile
Concomitant Antimicrobials: piperacillin/tazobactam, clindamycin
- Assessment - Therapeutic Drug Monitoring
Random Level: 11.8 - drawn ~28.5H after 2g loading dose
- Dosing Plan
Dosing by Level: Re-dose today (Vanc 1000mg)
- Monitoring Plan
Random Level: 03/08 06
- Follow Up
Pharmacy will continue to follow.
Vancomycin Follow UP
- -
Patient Age: 73
Patient Sex: Female
Vancomycin Day #: 2
Indication: Skin And Soft Tissue
Requesting Provider: Dr. Gotti / Alex
Pertinent Antimicrobial Allergies:
NKDA
Height / Weight:
Height 5 ft 3 in
Actual Weight 76.4 kg
- Vital Signs / Lab Results
Temp Pulse Resp BP Pulse Ox
98.6 F 78 24 129/67 94
03/07/24 07:30 03/07/24 08:30 03/07/24 08:30 03/07/24 08:30 03/07/24 08:30
Lab Results - Hematology
03/05/24 03/06/24 03/07/24
23:52 04:50 03:43
WBC 49.0 H* 49.9 H* 37.5 H
Lab Results - Chemistry
03/05/24 03/06/24 03/07/24
23:52 21:03 03:43
BUN 62 H 38 H 36 H
Creatinine 1.6 H 1.2 H 1.1 H
Estimated Creat Clear 31 42 46
Albumin 2.8 L 2.3 L
03/06/24 03/06/24 03/06/24
00:53 01:00 04:50
Lactic Acid 2.3 H Cancelled 1.5
Microbiology Results
03/06/24 07:45 MRSA Screen - Final
Nose No Methicillin Resistant Staphylococcus aureus isolated.
03/06/24 07:45 Blood Culture - Preliminary
Blood/Venous No Growth in 24 hours- Final report to follow
03/06/24 07:45 Blood Culture - Preliminary
Blood/Venous No Growth in 24 hours- Final report to follow
03/06/24 02:37 Influenza Types A & B (BETHEL) - Final
Nasal Swab Negative for Influenza A & B, NAAT
Negative results must be combined with clinical observations
and patient history.
Nucleic Acid Amplification test (NAAT)performed on the
[employer] platform.
Therapeutic Drug Monitoring
Random Vancomycin 11.8 ug/ml 03/07/24 05:36
--- NOTE | 2024-03-07 10:42 | W.PN.HOSP.TC ---
Today's Communication/Plan
-
IV antibiotics per
Podiatry evaluation for
Arterial ultrasound
Basal bolus protocol
Attempt to wean pressor. Initiated on midodrine
Hold antihypertensives
Replete potassium
Assessment / Plan
Assessment / Plan
Impression:
Sepsis (tachycardia, low-grade fever, leukocytosis with left shift, hypotension)
Septic shock not responding to IV fluids and requiring vasopressor
Bilateral lower extremity/foot cellulitis with superficial wounds
Toxic metabolic encephalopathy secondary to above
Self limited episode of SVT.
Acute kidney injury
Lactic acidosis
Contraction alkalosis
Hyponatremia with hypovolemia
Hypokalemia
Diabetes, new diagnosis hemoglobin A1c 6.4
Abnormal LFT
Mild rhabdomyolysis, nontraumatic
Other conditions:
Essential hypertension
Breast carcinoma status posttreatment in remission.
Mild to moderate intellectual disability.
Plan:
Sepsis
Septic shock requiring vasopressors
Bilateral lower extremity/feet wounds with cellulitis likely source
Presents with no respiratory or urinary symptoms.
COVID-19/influenza negative.
Urinalysis with microhematuria otherwise unremarkable
Chest x-ray and CT scan with no focal infiltrates
Reported loose stools as outpatient
Blood cultures no growth to date
Urine cultures pending
CT of lower extremities with no evidence of collection, consistent with cellulitis
Empiric antibiotics status post single dose of vancomycin, currently on Zosyn with addition of clindamycin.
Additional workup for PAD with arterial ultrasound
Podiatry consultation
ID input appreciated
Lactated Ringer.
Initiated on Levophed, currently normotensive will attempt to wean
If diarrhea check for CT for norovirus
Trend WBC
Random serum cortisol and TSH appropriate
Altered mental status suspected secondary to toxic metabolic cephalopathy in the settings of fever and hypotension.
No focal findings on exam.
CT scan of the head with no acute abnormalities per
Continue neurologic monitoring for
Consider additional imaging if recurrent.
Self-limited episode of SVT.
Currently normal sinus rhythm.
Monitor.
Acute kidney injury suspect
Urinalysis relatively bland other than mild micro hematuria.
Lactic acidosis improving
Continue to challenge with isotonic solution.
Hold thiazide diuretic.
Hold NSAIDs
Mildly elevated transaminases AST at 80.
Suspect function of mild rhabdo. CPK trending down.
Diabetes.
New diagnosis
Hemoglobin A1c 6.4.
Start basal bolus protocol with serial Accu-Cheks monitoring for
Diabetic diet
CODE STATUS DNR.
Anticipated Discharge: > 48 hours
Subjective/Interval History
-
Date of Service: March 07, 2024
Objective Data
-
Labs:
Laboratory Results
03/07/24
03:43
WBC 37.5 H
Hgb 10.5 L
Hct 31.4 L
Plt Count 261
Sodium 132 L
Potassium 3.3 L
Chloride 98
Carbon Dioxide 28
BUN 36 H
Creatinine 1.1 H
Glucose 118 H
Calcium 7.6 L
Total Bilirubin 0.3
AST 42 H
ALT 16
Alkaline Phosphatase 97
Vital Signs:
Vital Signs
Temp Pulse Resp BP Pulse Ox
98.6 F 78 20 103/52 96
03/07/24 07:30 03/07/24 10:00 03/07/24 10:00 03/07/24 10:00 03/07/24 10:00
I&O
03/06/24 03/07/24 03/08/24
06:59 06:59 06:59
Intake Total 3837.2 / 3948.5 445.2 / 445.2
Balance 3837.2 / 3948.5 445.2 / 445.2
Physical Exam
-
General: Well Developed and No Apparent Distress
HEENT: Normocephalic, Atraumatic and Moist Mucous Membranes
Respiratory: Clear to Auscultation
Cardiac: Regular Rhythm and S1/S2; Negative Murmur, Rub or Gallop
GI: Soft, Nontender, Nondistended and Normal Bowel Sounds; Negative Organomegaly
Rectal: Deferred by Provider
Musculoskeletal: No Clubbing, No Cyanosis and No Edema
Skin: Negative Rash
Neuro: Nonfocal/Grossly Intact
[2024-03-07 11:45] LABS: Glucose - Point of Care 111 mg/dl (70-99)
[2024-03-07] MEDS: ZOSYN 100 IV ×3 (12:04→23:55)
[2024-03-07] MEDS: ProAmatine 10 MG PO ×2 (12:37→17:55)
[2024-03-07] MEDS: LR IV (12:49)
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
--- NOTE | 2024-03-07 16:00 | PTCARENOTE ---
Pt assessed.No change in assessment noted.Pt assisted oob to chair with 2 person mod assist as per PT/OT.Levophed weaned off.
--- NOTE | 2024-03-07 16:30 | CON.SURG ---
Surgical Consultation
-
Chief Complaint / Past History
Chief Complaint
Lower extremity cellulitis
History of Present Illness
Ms Goldman is a 73 yo F with history of breast cancer s/p L mastectomy, chemotherapy and radiation, mild-moderate intellectual developmental delay, living independently who was rhonda to the ER late 03/05 after being found down at her home by family.
Patient had endorsed some redness, swelling and pain to bilateral feet. 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 Podiatry has been consulted for bilateral foot cellulitis. Patient denies a history of diabetes but no history of foot
wounds or infections.
Past History
Additional Past Medical History:
Breast cancer status post radical mastectomy on the left, XRT and chemotherapy with eventual breast reconstruction surgery and discharge from oncology over 2 years ago.), GERD and HTN
Additional Past Surgical History:
Left breast mastectomy
Allergy History:
No Known Allergies Allergy (Verified 03/05/24 23:43)
Medications Reviewed: Yes
Social History
Tobacco: Non-Smoker
Alcohol: None
Drug: None
Family History
Family History: Not Pertinent
Review of Systems
Review of Systems
General: Negative Fever or Chills
All systems: All other systems were reviewed and were negative
Vital Signs
Temp Pulse Resp BP Pulse Ox
97.0 F 74 23 97/48 94
03/06/24 07:52 03/06/24 14:15 03/06/24 14:15 03/06/24 14:15 03/06/24 14:15
Physical Exam
Physical Exam
Constitutional: No Acute Distress (unusual given her shock)
Cardiovascular: Regular Rate and S1/S2; Negative Murmur or Rub
Pulmonary: Clear and Symmetric; Negative Wheezes, Rales or Rhonchi
Gastrointestinal: Soft, Non Tender, Non Distended and Normal Bowel Sounds
Skin: Warm, Dry and Other (markedly thickened toe nails bilaterally); Negative Rash or Jaundice
Wound: Other (abrasions on the bilateral dorsal toes with surrounding erythema, no purulence, no fluctuance, small amount of dried blood around L proximal toenail but no open wound)
Neurological: Awake (smiling)
Psychological: Calm (and pleasant)
Lines: PICC
Bilateral Lower Extremity Exam
-DP/PT pulses 2/4, capillary refill time < 3 seconds
-Bilateral toes with dorsal superficial abrasions without any deep probing, purulence, crepitus, proximal streaking or other signs of infection
-Bilateral feet with mild edema and erythema
Lab / Diagnostic Study Results
03/06/24 04:50
03/05/24 23:52
Abs Immat Gran (auto) 1.6 10^3/uL (0-0.05) H 03/05/24 23:52
Absolute Neuts (auto) 44.7 10^3/uL (1.4-6.5) H 03/05/24 23:52
Absolute Lymphs (auto) 1.5 10^3/uL (1.2-3.4) 03/05/24 23:52
Absolute Monos (auto) 1.1 10^3/uL (0.1-0.6) H 03/05/24 23:52
Absolute Basos (auto) 0.1 10^3/uL (0-0.2) 03/05/24 23:52
Immature Gran % 3.3 % (0-0.5) H 03/05/24 23:52
Neutrophils % 91.3 % (42.2-75.2) H 03/05/24 23:52
Lymphocytes % 3.1 % (20.5-51.1) L 03/05/24 23:52
Monocytes % 2.2 % (1.7-9.3) 03/05/24 23:52
Eosinophils % 0.0 % (0-6) 03/05/24 23:52
Basophils % 0.1 % (0-2) 03/05/24 23:52
Lactic Acid 1.5 mmol/L (0.7-2.0) 03/06/24 04:50
Procalcitonin 2.16 ng/ml (0.0-0.25) H* 03/06/24 04:50
Ur Squamous Epith Cells 3-5 /LPF (Few) 03/05/24 23:52
Microbiology Results
Micro:
03/06/24 07:45 MRSA Screen - Pending
Nose
03/06/24 07:45 Blood Culture - Pending
Blood/Venous
03/06/24 07:45 Blood Culture - Pending
Blood/Venous
03/06/24 02:37 Influenza Types A & B (BETHEL) - Final
Nasal Swab Negative for Influenza A & B, NAAT
Negative results must be combined with clinical observations
and patient history.
Nucleic Acid Amplification test (NAAT)performed on the
[employer] platform.
03/05/24 23:52 Urine Culture - Pending
Urine
Assessment / Plan
Ms Goldman is a 73 yo F with history of breast cancer s/p L mastectomy, chemotherapy and radiation, mild-moderate intellectual developmental delay who presents to with sepsis, concern that bilateral feet are sources of infection
-Patient seen and evaluated at bedside
-Bilateral lower extremity exam unimpressive, superficial abrasions dorsally without any deep communication, crepitus, fluctuance, or proximal streaking
-CT scan shows BL cellulitis without any abscess
-Recommend continue antibiotics per ID recommendations
-No podiatric surgical intervention warranted
-Can apply betadine daily to bilateral toes
-Podiatry will sign off at this time, please call with any questions or concerns
[2024-03-07 17:09] LABS: Glucose - Point of Care 111 mg/dl (70-99)
[2024-03-07] MEDS: LOVENOX 40 MG SC (17:18)
--- NOTE | 2024-03-07 20:00 | PTCARENOTE ---
Received pt from previous shift. Systems reviewed, see flowsheets. Pt OOB in chair but wanting to get back to bed. Assisted back to bed with day shift RN. NSR on heart monitor, rate 60s-80s. BP 92/52 (65). SaO2 95-99% on 3L NC, will attempt to wean
as able. RUE PICC capped. No new complaints at this time. Family at bedside. Will continue to monitor.
[2024-03-07] MEDS: XALATAN OPHTHALMIC SOLUTION 1 DROP BOTH EYES (22:40)
[2024-03-07 23:24] LABS: Glucose - Point of Care 117 mg/dl (70-99)
[2024-03-08] VITALS (11 sets, daily range): BP systolic 98–121; BP diastolic 46–98; PULSE 73; O2SAT 94
--- NOTE | 2024-03-08 | PTCARENOTE ---
Systems reviewed. No changes at this time.
[2024-03-08] MEDS: CLEOCIN 50 IV ×2 (00:38→08:33)
--- NOTE | 2024-03-08 04:00 | PTCARENOTE ---
Systems reviewed, no changes in assessment at this time.
[2024-03-08 04:57] LABS: Hematocrit 33.2 % (37.0-47.0); Hemoglobin 10.8 g/dL (12.0-16.0); Mean Corp Hgb Conc. 32.5 g/dL (33.0-37.0); Mean Corpuscular Hgb 27.1 pg (27.0-31.0); Mean Corpuscular Volume 83.2 fL (81.0-99.0); Mean Platelet Volume 10.8 fL (7.4-10.4); Platelet Count 256 10^3/uL (130-400); Red Blood Cell Count 3.99 10^6/uL (4.20-5.40); Red Cell Dist. Width 16.2 % (11.5-14.5); White Blood Cell Count 38.3 10^3/uL (4.8-10.8)
[2024-03-08] MEDS: ZOSYN 100 IV ×4 (05:34→23:28)
[2024-03-08 05:45] LABS: Blood Urea Nitrogen 27 mg/dl (7-17); Calcium 7.7 mg/dl (8.4-10.2); Carbon Dioxide 29 mmol/L (22-30); Chloride 100 mmol/L (98-107); Creatine Phosphokinase 49 U/L (30-135); Estimated Creatinine Clearance 42 ml/min; Glucose 112 mg/dl (70-99); Potassium 3.5 mmol/L (3.5-5.1); Sodium 135 mmol/L (135-145); eGFR 48.39
[2024-03-08 07:46] LABS: % Basophils 0.4 % (0-2); % Eosinophils 0.1 % (0-6); % Immature Granulocytes 3.1 % (0-0.5); % Lymphocytes 3.3 % (20.5-51.1); % Monocytes 2.2 % (1.7-9.3); % Neutrophils 90.9 % (42.2-75.2); Absolute Basophils 0.2 10^3/uL (0-0.2); Absolute Eosinophils 0.1 10^3/uL (0-0.7); Absolute Immature Granulocytes 1.2 10^3/uL (0-0.05); Absolute Lymphocytes 1.3 10^3/uL (1.2-3.4); Absolute Monocytes 0.9 10^3/uL (0.1-0.6); Absolute Neutrophils 34.8 10^3/uL (1.4-6.5); Nucleated Red Blood Cells % 0 %
[2024-03-08 08:14] LABS: Glucose - Point of Care 147 mg/dl (70-99)
--- NOTE | 2024-03-08 08:21 | W.PN.INTV ---
Today's Communication / Plan
Recommendations
Continue midodrine 10 mg TID
Maintain MAP >65
Antibiotics per ID
Podiatry consulted, recs appreciated
Continue trending LFTs + serum sodium
Replete K>4, Mg>2
Fall precautions
PT/OT
DNR/DNI
Patient is stable for downgrade out of ICU to [facility]. No additional recommendations at this time. Lime Spreader/Pulmonary service will now sign off. Please reconsult if there are any additional questions/concerns, or if patient's respiratory status
deteriorates.
Assessment
-
Assessment: 73-year-old female with a history of left-sided breast cancer s/p chemotherapy/XRT followed by reconstructive breast surgery, GERD, hypertension, intellectual developmental delay and anemia who presents with being found unresponsive on
the floor. According to the family, the patient has fallen a few times over the last few weeks. They believe that she fell prior to arrival as well and was on the floor for about 4-5 hours. History obtained from the sister, Rhea, and
[id number], Kerwin. Patient then brought to the ER for further evaluation. In the ER she was afebrile to 97.7 �F, pulse rate 167, breathing at 18 breaths/min, BP 87/62 and saturating 95% on room air. Initial EKG showed SVT. Labs showed
leukocytosis to 49, Hb 15.2, sodium 130, chloride 88, creatinine 1.6, lactate 2.3, AST 80, CK4 13, TSH 1.76, urinalysis showed trace leukocyte esterase and she was COVID-19 antigen negative. Urine and blood cultures were collected. Initial CXR
showed subsegmental atelectasis. Head CT showed no acute intracranial abnormality. Chest CT showed bilateral lower lobe subsegmental atelectasis with no evidence of pneumonia. In the ER she was given Zosyn, vancomycin, 3 L total of IVF NS 0.9%,
and due to persistent hypotension she was started on Levophed. She was admitted to the ICU for further care and [facility] services consulted for additional management/recommendations.
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
Impression:
#Fall
#SVT in the ER - now in NSR
#Shock requiring vasopressors -source includes UTI versus lower extremity cellulitis; feet appear infected via onychomycosis, with mild redness in the dorsal surface of the toes but nothing severe although cellulitis seen in the lower
extremities/feet on imaging. No pneumonia on CT chest, and cortisol WNL - shock state now resolved
#Mild rhabdomyolysis
#MEET
#Hyponatremia - resolved
#Leukocytosis � likely leukemoid reaction otherwise differential also includes undiagnosed myelodysplastic syndrome vs leukemia
#Lactic acidosis � now resolved
#Mild transaminitis
#Ambulatory dysfunction with multiple falls last few weeks
#Intellectual disability
#Left-sided breast cancer s/p chemo/XRT followed by reconstructive breast surgery
#History of GERD
#Hypertension
Plan:
- Now off vasopressors since the afternoon of 03/07/2024
- Keep MAP >65
- Limit IVF to avoid volume overload
- I checked a bedside ultrasound on 03/06/2024 showing 16% IVC collapsibility, hence will not give any additional IV fluid boluses after repeat bolus earlier yesterday morning
- Continue midodrine in an attempt to get her off Levophed - raises midodrine on 03/07 to 10mg TID
- Cortisol level was 57 on admission, hence this rules out adrenal insufficiency
- Continue with broad-spectrum antibiotics with Zosyn s/p Clindamycin; IV vancomycin discontinued as MRSA swab is negative
- Follow-up urine and blood cultures (NGTD)
- Trend WBC and monitor for fevers
- Defer Abx to ID
- Podiatry consulted given appearance of her toes with concern for chronic onychomycosis - no podiatric surgical intervention needed at this time
- Maintain SpO2 >90-94% with supplemental O2 and wean down as tolerated
- Continue aspiration precautions
- Continue patient's home medications of paroxetine and ascorbic acid
- Replete electrolytes with K>4, Mg>2
- Trend LFTs
- Trend sNa
- Maintain euglycemia with goal BG 140-180 with ISS AC
- Trend H/H and transfuse if needed to keep Hb>7g/dL; keep plt>20k, unless there is concern for bleeding then keep plt>50k
- prn nebulized bronchodilators - not currently bronchospastic
- Incentive spirometer encouraged 10x per hour for at least 4 hrs a day
- DVT ppx: HSQ --> LMWH now that MEET improving
Code status: Patient is DNR/DNI
Patient is stable for downgrade out of ICU to [facility]. No additional recommendations at this time. Lime Spreader/Pulmonary service will now sign off. Thank you for allowing us to be involved in the care of this patient. Please reconsult if there
are any additional questions/concerns, or if patient's respiratory status deteriorates.
Total time spent today was 56 minutes for this encounter. Time includes reviewing laboratory test/imaging results, reviewing pertinent medical records, obtaining and reviewing medical history, performing an appropriate exam, ordering medications,
tests and procedures. Time also includes documentation of this encounter, coordinating patient care and communicating with other healthcare professionals. Total time does not include separately billed tests performed on this date of service.
Subjective Dataa
Subjective Data
Date of Service:
Date of Service: March 08, 2024
Chief Complaint: Lime Spreader Follow Up
Subjective:
Patient seen and evaluated today at bedside. Been off Levophed since yesterday afternoon. Heart rate 69, saturating 95% on 2 L/min and BP 114/55. She feels well, no complaints from overnight. Currently denies chest pain, BERNARD, nausea, fevers or
chills.
Review of Systems
General: Other (Negative unless mentioned above)
Objective Data
Data Reviewed
Vital Signs / I&O / Oxygen:
Vital Signs
Temp Pulse Resp BP Pulse Ox
98.1 F 75 24 114/55 94
03/08/24 07:30 03/08/24 08:00 03/08/24 08:00 03/08/24 08:00 03/08/24 08:00
Intake and Output
03/07/24 03/08/24 03/09/24
06:59 06:59 06:59
Intake Total 3837.2 / 3948.5 1279.0 / 1279.0
Output Total 450 / 450
Balance 3837.2 / 3948.5 829.0 / 829.0
SaO2 94
Nasal Cannula flow liters per 2
minute
Physical Exam
General: Respiratory Distress (negative), Comfortable, Chills (negative) and Sweats (negative)
HEENT: Normocephalic and Anicteric
Cardiovascular: S1-S2 and Peripheral Edema (+1 lower extremity pitting edema bilaterally)
Respiratory: Clear, Wheeze (negative), Crackles (negative), Rhonchi (negative), Non-Labored Respirations and Stridor (negative)
GI: Soft, Non Distended, Non Tender and Normal Bowel Sounds
Neurology: Awake, Alert and Tremors (negative)
Skin: Warm, Dry, Cyanosis (negative) and Jaundice (negative)
Labs/Micro/Reports
Lab Data
03/08/24 04:43
03/08/24 04:43
Microbiology
03/05/24 23:52 Urine Urine Culture - Final
Escherichia coli
03/06/24 07:45 Blood/Venous Blood Culture - Preliminary
No Growth in 48 hours- Final report to follow
03/06/24 07:45 Blood/Venous Blood Culture - Preliminary
No Growth in 48 hours- Final report to follow
03/06/24 07:45 Nose MRSA Screen - Final
No Methicillin Resistant Staphylococcus aureus isolated.
03/06/24 02:37 Nasal Swab Influenza Types A & B (BETHEL) - Final
Negative for Influenza A & B, NAAT
Negative results must be combined with clinical observations
and patient history.
Nucleic Acid Amplification test (NAAT)performed on the
[employer] platform.
[2024-03-08] MEDS: ProAmatine 10 MG PO ×3 (08:32→17:44)
[2024-03-08] MEDS: PAXIL 10 MG PO (08:32)
[2024-03-08] MEDS: VITAMIN C 500 MG PO (08:33)
--- NOTE | 2024-03-08 10:30 | W.PN.ID1 ---
Date of Service
Date of Service: March 08, 2024
Today's Communication
continue zosyn
stopped clindamycin
Assessment / Plan
BL Diabetic Foot Infections - suspect with component of group A strep
Leukemoid reaction
MEET
- continue zosyn - eventual transition to orals, would like to see some further improvement in leukocytosis, stopping midodrine
- stopped clindamycin
- follow physical exam, cbc
preformed breast exam at [facility] request 03/07 - L breast consistent with reconstruction without evidence of infection, R breast consistent with normal aging also no evidence of infection. I agree that they are notably different and could understand
why she feels concerned; I suspect progressive age related atrophy of the R has increased the disparity over time. Discussed with [facility] Rhea 03/07 and she is concerned and requests a second opinion. [place] text with Dr Reddy, local plastic surgeon
last night, he is willing to see her outpatient, if she remains in house next week he may be able to see her inpatient.
Chief Complaint
-: Cellulitis and Other (shock)
Subjective / Review of Systems
remains afebrile
bp stable remains off of pressors
in good spirits
denies pain in the feet or breasts todya
Vital Signs / Physical Exam
Vital Signs
Vital Signs
Temp Pulse Resp BP Pulse Ox
98.1 F 75 24 114/55 94
03/08/24 07:30 03/08/24 08:00 03/08/24 08:00 03/08/24 08:00 03/08/24 08:00
Physical Exam
Constitutional: No Acute Distress
Cardiovascular: Regular Rate and S1/S2; Negative Murmur or Rub
Pulmonary: Clear and Symmetric; Negative Wheezes or Rales
Gastrointestinal: Soft, Non Tender, Non Distended and Normal Bowel Sounds
Genito-Urinary: Other (breasts unchanged, L breast consisent with reconstuction, right breast with age related atrophy; niether with tenderness, erythema, warmth or fluctuance)
Skin: Warm and Dry; Negative Rash or Jaundice
Wound: Other (superificial abrasions with mild surrounding erythema, no longer tender)
Objective Data
Lab Data
Lab Results
03/08/24 04:43
03/08/24 04:43
Estimated Creat Clear 42 ml/min 03/08/24 04:43
Lactic Acid 1.5 mmol/L (0.7-2.0) 03/06/24 04:50
Total Bilirubin 0.3 mg/dl (0.2-1.3) 03/07/24 03:43
AST 42 U/L (14-36) H 03/07/24 03:43
ALT 16 U/L (0-35) 03/07/24 03:43
Alkaline Phosphatase 97 U/L (38-126) 03/07/24 03:43
Most recent labs reviewed.
Micro Results:
03/06/24 07:45 Blood Culture - Preliminary
Blood/Venous No Growth in 48 hours- Final report to follow
03/05/24 23:52 Urine Culture - Final
Urine Escherichia coli
03/06/24 07:45 Blood Culture - Preliminary
Blood/Venous No Growth in 48 hours- Final report to follow
03/06/24 07:45 MRSA Screen - Final
Nose No Methicillin Resistant Staphylococcus aureus isolated.
03/06/24 02:37 Influenza Types A & B (BETHEL) - Final
Nasal Swab Negative for Influenza A & B, NAAT
Negative results must be combined with clinical observations
and patient history.
Nucleic Acid Amplification test (NAAT)performed on the
[employer] platform.
[2024-03-08 12:21] LABS: Glucose - Point of Care 115 mg/dl (70-99)
--- NOTE | 2024-03-08 13:00 | PTCARENOTE ---
Pt AAOx3. Sinus rhythm. Trace lower extremity edema. Palpable pedal pulses. 2L NC. 3 small loose stools. Incontinent of bowel and bladder. Peripheral IV placed. IV team notified of d/c PICC line order. Pt's sister, Rhea, notified of
transfer to room 318.
--- NOTE | 2024-03-08 14:07 | PTCARENOTE ---
Received pt from ICU via wheelchair. Ambulated to bed with RW x2. AAOx2-3. Forgetful. Bed alarm placed & plugged in. VSS. Assessed and oriented to room. Call coates within close reach. Pt verbalized understanding of call coates.
--- NOTE | 2024-03-08 14:11 | W.PN.HOSP.TC ---
Today's Communication/Plan
-
IV antibiotics monitoring temperature curve and WBC.
Off IV fluids and vasopressor. Off midodrine. Monitor BP.
Lower extremity wound care as per podiatry
Physical therapy assessment
Transfer out of ICU
Case management has been consulted for discharge planning and possible placement.
Assessment / Plan
Assessment / Plan
Impression:
Sepsis (tachycardia, low-grade fever, leukocytosis with left shift, hypotension)
Septic shock not responding to IV fluids and requiring vasopressor
Bilateral lower extremity/foot cellulitis with superficial wounds
Toxic metabolic encephalopathy secondary to above
Self limited episode of SVT.
Acute kidney injury
Lactic acidosis
Contraction alkalosis
Hyponatremia with hypovolemia
Hypokalemia
Diabetes, new diagnosis hemoglobin A1c 6.4
Abnormal LFT
Mild rhabdomyolysis, nontraumatic
Other conditions:
Essential hypertension
Breast carcinoma status posttreatment in remission.
Mild to moderate intellectual disability.
Plan:
Sepsis
Septic shock requiring vasopressors
Bilateral lower extremity/feet wounds with cellulitis likely source
Presents with no respiratory or urinary symptoms.
COVID-19/influenza negative.
Urinalysis with microhematuria otherwise unremarkable
Chest x-ray and CT scan with no focal infiltrates
Reported loose stools as outpatient
Blood cultures no growth to date
Urine cultures pending
CT of lower extremities with no evidence of collection, consistent with cellulitis
Antibiotics narrowed to Zosyn alone (status post single dose of vancomycin, clindamycin)
ELIO with no evidence of arterial insufficiency
Podiatry input appreciated
ID input appreciated
Random serum cortisol and TSH appropriate
Had been off Levophed
Agree with discontinuing midodrine
Altered mental status suspected secondary to toxic metabolic cephalopathy in the settings of fever and hypotension.
No focal findings on exam.
CT scan of the head with no acute abnormalities per
Continue neurologic monitoring for
Consider additional imaging if recurrent.
Self-limited episode of SVT.
Currently normal sinus rhythm.
Monitor.
Acute kidney injury suspect
Urinalysis relatively bland other than mild micro hematuria.
Lactic acidosis improved
Hold thiazide diuretic.
Hold NSAIDs
Mildly elevated transaminases AST at 80.
Suspect function of mild rhabdo. CPK trending down.
Diabetes.
New diagnosis
Hemoglobin A1c 6.4.
Start basal bolus protocol with serial Accu-Cheks monitoring for
Diabetic diet
CODE STATUS DNR.
Anticipated Discharge: > 48 hours
Subjective/Interval History
-
Date of Service: March 08, 2024
Objective Data
-
Labs:
Laboratory Results
03/08/24
04:43
WBC 38.3 H
Hgb 10.8 L
Hct 33.2 L
Plt Count 256
Sodium 135
Potassium 3.5
Chloride 100
Carbon Dioxide 29
BUN 27 H
Creatinine 1.2 H
Glucose 112 H
Calcium 7.7 L
Vital Signs:
Vital Signs
Temp Pulse Resp BP Pulse Ox
97.5 F 77 17 111/63 93
03/08/24 14:03 03/08/24 14:03 03/08/24 14:03 03/08/24 14:03 03/08/24 14:03
I&O
03/07/24 03/08/24 03/09/24
06:59 06:59 06:59
Intake Total 3837.2 / 3948.5 1279.0 / 1279.0
Output Total 450 / 450
Balance 3837.2 / 3948.5 829.0 / 829.0
Physical Exam
-
General: Well Developed and No Apparent Distress
HEENT: Normocephalic, Atraumatic and Moist Mucous Membranes
Respiratory: Clear to Auscultation
Cardiac: Regular Rhythm and S1/S2; Negative Murmur, Rub or Gallop
GI: Soft, Nontender, Nondistended and Normal Bowel Sounds; Negative Organomegaly
Rectal: Deferred by Provider
Musculoskeletal: No Clubbing, No Cyanosis and No Edema
Skin: Negative Rash
Neuro: Nonfocal/Grossly Intact
--- NOTE | 2024-03-08 14:22 | CM ---
Addendum entered by Jake Vargas 03/09/24 14:06:
CM met with pt's sister Rhea today, explained in details the notion of level II PASRR evaluation and a process. Pt's sister signed all necessary consents and paperwork, including MA 51, PASRR, etc and with pt's clinical faxed to [facility] for a review
and evaluation.
Psychiatry consult requested per request [facility] trimming caser.
Pt's sister stated her main choice is [facility] SNF and pt might stay there for a predatory animal exterminator care. Per sister, pt's father is a Art and pt has financial resources to pay privately for a jail care for more that a year.
CM will fax Psychiatry evaluation to [facility] when available [phone].
Awaiting level II evaluation outcome.
D/C plan: preferred SNF. Pt's sister focused on [facility] for a short term and possibly predatory animal exterminator care.
CM will follow to assist pt with discharge to a preferred SNF.
Addendum entered by Jake Vargas 03/08/24 16:04:
[facility] trimming caser [place] [phone] requested signature of pt's sister SHANNAN and verbal is not acceptable and psychiatrist consult requested.
MD is aware of psychiatrist consult for Level II PASRR evaluation reason.
CM spoke to pt's sister Rhea and she will be here at tomorrow to sign all paperwork.
Level II PASRR evaluation is in process/progress.
Original Note:
CM following re: discharge planning.
Reviewed pt's chart, met with pt and spoke to pt's sister Rhea CAMPBELL to update on discharge plan progress.
PT and OT evaluations noted - SNF level of care recommended. Both pt and her sister Rhea are aware, expressed their agreement and following SNFs preferred: [facility], [facility], [facility], [facility]
SNF, [facility]. A referral to above SNFs made.
Pt's sister stated that pt most likely will not be able to continue living alone and transition to a jail care or placement to an [facility] will be a plan
Pt triggers on PASRR section Intellectual disability. Level II PASRR evaluation requested, all necessary documents with MA51 and pt's clinical faxed to [facility] for a review [phone].
Awaiting Level II PASRR evaluation and determination.
D/C plan: Preferred SNF for a short term rehab and possibly jail care.
CM will follow to assit pt with discharge to a preferred SNF.
[2024-03-08 16:49] LABS: Glucose - Point of Care 89 mg/dl (70-99)
[2024-03-08] MEDS: LOVENOX 40 MG SC (17:44)
[2024-03-08] MEDS: FLUSH (NSS) 1 FLUSH IV (18:15)
[2024-03-08] MEDS: XALATAN OPHTHALMIC SOLUTION 1 DROP BOTH EYES (21:08)
[2024-03-08 21:43] LABS: Glucose - Point of Care 123 mg/dl (70-99)
[2024-03-09] MEDS: ZOSYN 100 IV ×4 (05:15→23:07)
[2024-03-09 07:00] VITALS: BP 96/53
[2024-03-09 07:51] LABS: Glucose - Point of Care 108 mg/dl (70-99)
[2024-03-09] MEDS: ProAmatine 10 MG PO ×3 (08:42→17:21)
[2024-03-09] MEDS: PAXIL 10 MG PO (08:42)
[2024-03-09] MEDS: VITAMIN C 500 MG PO (08:42)
[2024-03-09 09:12] LABS: Blood Urea Nitrogen 26 mg/dl (7-17); Calcium 7.9 mg/dl (8.4-10.2); Carbon Dioxide 28 mmol/L (22-30); Chloride 99 mmol/L (98-107); Estimated Creatinine Clearance 42 ml/min; Glucose 101 mg/dl (70-99); Potassium 3.3 mmol/L (3.5-5.1); Sodium 135 mmol/L (135-145); eGFR 48.39
[2024-03-09 09:34] LABS: Hematocrit 32.2 % (37.0-47.0); Hemoglobin 10.9 g/dL (12.0-16.0); Mean Corp Hgb Conc. 33.9 g/dL (33.0-37.0); Mean Corpuscular Hgb 27.9 pg (27.0-31.0); Mean Corpuscular Volume 82.4 fL (81.0-99.0); Mean Platelet Volume 11.4 fL (7.4-10.4); Platelet Count 290 10^3/uL (130-400); Red Blood Cell Count 3.91 10^6/uL (4.20-5.40); Red Cell Dist. Width 16.2 % (11.5-14.5); White Blood Cell Count 32.3 10^3/uL (4.8-10.8)
--- NOTE | 2024-03-09 09:42 | W.PN.HOSP.TC ---
Today's Communication/Plan
-
Potassium replacement
f/w ID recommendations
DC planning
Assessment / Plan
Assessment / Plan
Impression:
Sepsis (tachycardia, low-grade fever, leukocytosis with left shift, hypotension)
Septic shock not responding to IV fluids and requiring vasopressor
Bilateral lower extremity/foot cellulitis with superficial wounds
Toxic metabolic encephalopathy secondary to above
Self limited episode of SVT.
Acute kidney injury
Lactic acidosis
Contraction alkalosis
Hyponatremia with hypovolemia
Hypokalemia
Diabetes, new diagnosis hemoglobin A1c 6.4
Abnormal LFT
Mild rhabdomyolysis, nontraumatic
Other conditions:
Essential hypertension
Breast carcinoma status posttreatment in remission.
Mild to moderate intellectual disability.
Plan:
Sepsis
Septic shock requiring vasopressors
Bilateral lower extremity/feet wounds with cellulitis likely source
Presents with no respiratory or urinary symptoms.
COVID-19/influenza negative.
Urinalysis with microhematuria otherwise unremarkable
Chest x-ray and CT scan with no focal infiltrates
Reported loose stools as outpatient
Blood cultures no growth to date
Urine cultures no growth
CT of lower extremities with no evidence of collection, consistent with cellulitis
Antibiotics narrowed to Zosyn alone (status post single dose of vancomycin, clindamycin). Per ID: Transition Zosyn to Augmentin 875mg Po bid through 03/12/24.
ELIO with no evidence of arterial insufficiency
Podiatry input appreciated
ID input appreciated
Random serum cortisol and TSH appropriate
Had been off Levophed
DC midodrine
Altered mental status suspected secondary to toxic metabolic cephalopathy in the settings of infection.
No focal findings on exam.
CT scan of the head with no acute abnormalities
Back to baseline
Self-limited episode of SVT.
Currently normal sinus rhythm.
Acute kidney injury
Suspect underling CKD stage IIIA
Urinalysis relatively bland other than mild micro hematuria.
Lactic acidosis improved
Off thiazide diuretic, BP stable.
Hold NSAIDs
Mild-moderate intellectual developmental delay
Hypokalemia, replaced
Non traumatic mild rhabdomyolysis with Mildly elevated transaminases AST at 80.
CPK trending down.
Pre- Diabetes.
Hemoglobin A1c 6.4.
Patient did not need coverage with insulin and she was upset with frequent Acu-checks
DC ISS
Try low dose Metformin, will d/w pharmacy, can also use low dose Glipizide but will have risk of hypoglycemia
Liberate diet more for her
CODE STATUS DNR.
Total time spent to see the patient, examine the patient, review data and lab results, discuss treatment plan with patient, nursing staff around 55 minutes
Anticipated Discharge: Within 24 hours
Subjective/Interval History
-
Date of Service: March 09, 2024
No fever
No hypotension
Objective Data
-
Labs:
Laboratory Results
03/09/24
08:14
WBC 32.3 H
Hgb 10.9 L
Hct 32.2 L
Plt Count 290
Sodium 135
Potassium 3.3 L
Chloride 99
Carbon Dioxide 28
BUN 26 H
Creatinine 1.2 H
Glucose 101 H
Calcium 7.9 L
Vital Signs:
Vital Signs
Temp Pulse Resp BP Pulse Ox
98.0 F 83 16 96/53 96
03/09/24 07:00 03/09/24 07:00 03/09/24 07:00 03/09/24 07:00 03/09/24 07:00
I&O
03/08/24 03/09/24 03/10/24
06:59 06:59 06:59
Intake Total 1279.0 / 1279.0 340 / 340
Output Total 450 / 450
Balance 829.0 / 829.0 340 / 340
[2024-03-09 10:56] LABS: % Basophils 0.3 % (0-2); % Immature Granulocytes 2.4 % (0-0.5); % Lymphocytes 4.4 % (20.5-51.1); % Monocytes 2.9 % (1.7-9.3); Absolute Basophils 0.1 10^3/uL (0-0.2); Absolute Immature Granulocytes 0.8 10^3/uL (0-0.05); Absolute Lymphocytes 1.4 10^3/uL (1.2-3.4); Absolute Monocytes 0.9 10^3/uL (0.1-0.6); Absolute Neutrophils 29.1 10^3/uL (1.4-6.5); Nucleated Red Blood Cells % 0 %
[2024-03-09 11:07] VITALS: BP 96/51
[2024-03-09 15:00] VITALS: BP 120/54
[2024-03-09] MEDS: LOVENOX 40 MG SC (17:21)
[2024-03-09] MEDS: XALATAN OPHTHALMIC SOLUTION 1 DROP BOTH EYES (21:09)
[2024-03-09 23:45] VITALS: BP 121/55
[2024-03-10] MEDS: ZOSYN 100 IV (05:11)
[2024-03-10 06:41] LABS: Hematocrit 33.5 % (37.0-47.0); Hemoglobin 11.1 g/dL (12.0-16.0); Mean Corp Hgb Conc. 33.1 g/dL (33.0-37.0); Mean Corpuscular Hgb 27.6 pg (27.0-31.0); Mean Corpuscular Volume 83.3 fL (81.0-99.0); Mean Platelet Volume 10.9 fL (7.4-10.4); Platelet Count 285 10^3/uL (130-400); Red Blood Cell Count 4.02 10^6/uL (4.20-5.40); Red Cell Dist. Width 16.1 % (11.5-14.5); White Blood Cell Count 23.4 10^3/uL (4.8-10.8)
[2024-03-10 07:00] VITALS: BP 121/55
[2024-03-10] MEDS: ProAmatine 10 MG PO ×3 (08:51→17:26)
[2024-03-10] MEDS: VITAMIN C 500 MG PO (08:51)
[2024-03-10] MEDS: PAXIL 10 MG PO (08:51)
--- NOTE | 2024-03-10 09:48 | W.PN.ID1 ---
Date of Service
Date of Service: March 10, 2024
Today's Communication
Transition Zosyn to Augmentin 875mg po bid through 03/12/24.
Assessment / Plan
BL Diabetic Foot Infections - suspect with component of group A strep
Leukemoid reaction - improving
MEET
- Transition Zosyn to Augmentin 875mg po bid through 03/12/24.
- Trend wbc
Uneven breasts
hx of left breast reconstruction
- Plastics to assess if still inpatient, otherwise Dr. Reddy will see her as outpatient.
Chief Complaint
-: Cellulitis and Other (shock)
Subjective / Review of Systems
No complaints. Feels well.
Vital Signs / Physical Exam
Vital Signs
Vital Signs
Temp Pulse Resp BP Pulse Ox
98.9 F 91 18 121/55 95
03/10/24 07:00 03/10/24 07:00 03/10/24 07:00 03/10/24 07:00 03/10/24 07:00
Physical Exam
Constitutional: No Acute Distress
Cardiovascular: Regular Rate and S1/S2
Pulmonary: Clear
Gastrointestinal: Soft, Non Tender, Non Distended and Normal Bowel Sounds
Wound: Other (bilateral toes with superficial abrasions with minimal surrounding erythema, nontender)
Neurological: AO x 3
Objective Data
Lab Data
Lab Results
03/10/24 05:45
03/09/24 08:14
Estimated Creat Clear 42 ml/min 03/09/24 08:14
Lactic Acid 1.5 mmol/L (0.7-2.0) 03/06/24 04:50
Total Bilirubin 0.3 mg/dl (0.2-1.3) 03/07/24 03:43
AST 42 U/L (14-36) H 03/07/24 03:43
ALT 16 U/L (0-35) 03/07/24 03:43
Alkaline Phosphatase 97 U/L (38-126) 03/07/24 03:43
Most recent labs reviewed.
Micro Results:
03/06/24 07:45 Blood Culture - Preliminary
Blood/Venous No Growth in 4 days- Final report to follow
03/06/24 07:45 Blood Culture - Preliminary
Blood/Venous No Growth in 4 days- Final report to follow
03/05/24 23:52 Urine Culture - Final
Urine Escherichia coli
03/06/24 07:45 MRSA Screen - Final
Nose No Methicillin Resistant Staphylococcus aureus isolated.
03/06/24 02:37 Influenza Types A & B (BETHEL) - Final
Nasal Swab Negative for Influenza A & B, NAAT
Negative results must be combined with clinical observations
and patient history.
Nucleic Acid Amplification test (NAAT)performed on the
[employer] platform.
--- NOTE | 2024-03-10 10:27 | W.PN.HOSP.TC ---
Today's Communication/Plan
-
Change to oral ABx
replaced K, check in AM
Wean down Midodrine
Start low dose metformin , will d/w pharmacy
Assessment / Plan
Assessment / Plan
Impression:
Sepsis (tachycardia, low-grade fever, leukocytosis with left shift, hypotension)
Septic shock not responding to IV fluids and requiring vasopressor
Bilateral lower extremity/foot cellulitis with superficial wounds
Toxic metabolic encephalopathy secondary to above
Self limited episode of SVT.
Acute kidney injury
Lactic acidosis
Contraction alkalosis
Hyponatremia with hypovolemia
Hypokalemia
Diabetes, new diagnosis hemoglobin A1c 6.4
Abnormal LFT
Mild rhabdomyolysis, nontraumatic
Other conditions:
Essential hypertension
Breast carcinoma status posttreatment in remission.
Mild to moderate intellectual disability.
Plan:
Sepsis
Septic shock requiring vasopressors, now on oral midodrine
Bilateral lower extremity/feet wounds with cellulitis likely source
Presents with no respiratory or urinary symptoms.
COVID-19/influenza negative.
Urinalysis with microhematuria otherwise unremarkable
Chest x-ray and CT scan with no focal infiltrates
Reported loose stools as outpatient
Blood cultures no growth to date
Urine cultures no growth
CT of lower extremities with no evidence of collection, consistent with cellulitis
Antibiotics narrowed to Zosyn alone (status post single dose of vancomycin, clindamycin). Per ID: Transition Zosyn to Augmentin 875mg Po bid through 03/12/24.
ELIO with no evidence of arterial insufficiency
Podiatry input appreciated
ID input appreciated
Random serum cortisol and TSH appropriate
Had been off Levophed
Try to wean off Midodrine
Altered mental status suspected secondary to toxic metabolic cephalopathy in the settings of infection.
No focal findings on exam.
CT scan of the head with no acute abnormalities
Back to baseline
Self-limited episode of SVT.
Currently normal sinus rhythm.
Acute kidney injury
Suspect underling CKD stage IIIA
Urinalysis relatively bland other than mild micro hematuria.
Lactic acidosis improved
Off thiazide diuretic, BP stable.
Hold NSAIDs
Mild-moderate intellectual developmental delay
Hypokalemia, replaced
Non traumatic mild rhabdomyolysis with Mildly elevated transaminases AST at 80.
CPK trending down.
Pre- Diabetes.
Hemoglobin A1c 6.4.
Patient did not need coverage with insulin and she was upset with frequent Acu-checks
DC ISS
Try low dose Metformin, will d/w pharmacy, can also use low dose Glipizide but will have risk of hypoglycemia
Liberate diet more for her
CODE STATUS DNR.
Total time spent to see the patient, examine the patient, review data and lab results, discuss treatment plan with patient, nursing staff around 55 minutes
Anticipated Discharge: Within 24 hours
Subjective/Interval History
-
Date of Service: March 10, 2024
Doing well
Objective Data
-
Labs:
Laboratory Results
03/10/24
05:45
WBC 23.4 H
Hgb 11.1 L
Hct 33.5 L
Plt Count 285
Vital Signs:
Vital Signs
Temp Pulse Resp BP Pulse Ox
98.9 F 91 18 121/55 95
03/10/24 07:00 03/10/24 07:00 03/10/24 07:00 03/10/24 07:00 03/10/24 07:00
I&O
03/09/24 03/10/24 03/11/24
06:59 06:59 06:59
Intake Total 340 / 340 1240 / 1240
Balance 340 / 340 1240 / 1240
[2024-03-10] MEDS: KCL 20 MEQ PO (10:45)
[2024-03-10] MEDS: AUGMENTIN 875 MG/125 MG 1 TABLET PO ×2 (10:45→20:13)
[2024-03-10 15:00] VITALS: BP 118/52
[2024-03-10] MEDS: LOVENOX 40 MG SC (17:26)
[2024-03-10] MEDS: GLUCOPHAGE 500 MG PO (17:26)
--- NOTE | 2024-03-10 17:56 | PTCARENOTE ---
Pt OOB during shift in chair at bedside, heavy assist x2 with RW. O2 removed and Pt 97% RA denies S.O.B. Continues on a bed alarm, making no attempts to get up without assistance. Call coates within reach.
[2024-03-10] MEDS: XALATAN OPHTHALMIC SOLUTION 1 DROP BOTH EYES (21:23)
[2024-03-10 23:32] VITALS: BP 113/60
[2024-03-11 06:50] LABS: Hematocrit 34.7 % (37.0-47.0); Hemoglobin 11.4 g/dL (12.0-16.0); Mean Corp Hgb Conc. 32.9 g/dL (33.0-37.0); Mean Corpuscular Hgb 27.6 pg (27.0-31.0); Mean Platelet Volume 10.7 fL (7.4-10.4); Platelet Count 311 10^3/uL (130-400); Red Blood Cell Count 4.13 10^6/uL (4.20-5.40); Red Cell Dist. Width 16.2 % (11.5-14.5); White Blood Cell Count 22.1 10^3/uL (4.8-10.8)
[2024-03-11 07:09] LABS: Blood Urea Nitrogen 22 mg/dl (7-17); Calcium 8.1 mg/dl (8.4-10.2); Carbon Dioxide 31 mmol/L (22-30); Chloride 101 mmol/L (98-107); Estimated Creatinine Clearance 51 ml/min; Glucose 113 mg/dl (70-99); Potassium 3.3 mmol/L (3.5-5.1); Sodium 136 mmol/L (135-145); eGFR > 60.00
[2024-03-11 07:30] VITALS: BP 110/60
[2024-03-11] MEDS: VITAMIN C 500 MG PO (08:06)
[2024-03-11] MEDS: ProAmatine 10 MG PO ×3 (08:06→17:05)
[2024-03-11] MEDS: PAXIL 10 MG PO (08:06)
[2024-03-11] MEDS: AUGMENTIN 875 MG/125 MG 1 TABLET PO ×2 (08:07→20:23)
--- NOTE | 2024-03-11 12:39 | W.PN.ID1 ---
Date of Service
Date of Service: March 11, 2024
Today's Communication
- c/w Augmentin 875mg po bid through 03/15/24.
- stable for dc from ID perspective
Assessment / Plan
BL Diabetic Foot Infections - suspect with component of group A strep
Leukemoid reaction - improving
MEET
- c/w Augmentin 875mg po bid through 03/15/24.
- stable for dc from ID perspective
Uneven breasts
hx of left breast reconstruction
- appreciate Dr Reddy's input
Chief Complaint
-: Cellulitis and Other (shock)
Subjective / Review of Systems
afebrile - explained to POA that discrepancy between oral and core Ts is well described and no benefit to taking them at the same time. With core Ts a fever is described as >101.0
bp stable
Vital Signs / Physical Exam
Vital Signs
Vital Signs
Temp Pulse Resp BP Pulse Ox
98 F 95 16 110/60 97
03/11/24 07:30 03/11/24 08:06 03/11/24 07:30 03/11/24 08:06 03/11/24 07:30
Physical Exam
Constitutional: No Acute Distress and Chronically Ill
Cardiovascular: Regular Rate and S1/S2; Negative Murmur or Rub
Pulmonary: Clear and Symmetric; Negative Wheezes or Rales
Gastrointestinal: Soft, Non Tender, Non Distended and Normal Bowel Sounds
Skin: Warm and Dry; Negative Rash or Jaundice
Wound: Other (minimal surrounding erythema)
Objective Data
Lab Data
Lab Results
03/11/24 06:31
03/11/24 06:31
Estimated Creat Clear 51 ml/min 03/11/24 06:31
Lactic Acid 1.5 mmol/L (0.7-2.0) 03/06/24 04:50
Total Bilirubin 0.3 mg/dl (0.2-1.3) 03/07/24 03:43
AST 42 U/L (14-36) H 03/07/24 03:43
ALT 16 U/L (0-35) 03/07/24 03:43
Alkaline Phosphatase 97 U/L (38-126) 03/07/24 03:43
Most recent labs reviewed.
Micro Results:
03/06/24 07:45 Blood Culture - Final
Blood/Venous No Growth - Final Report
03/06/24 07:45 Blood Culture - Final
Blood/Venous No Growth - Final Report
03/05/24 23:52 Urine Culture - Final
Urine Escherichia coli
03/06/24 07:45 MRSA Screen - Final
Nose No Methicillin Resistant Staphylococcus aureus isolated.
03/06/24 02:37 Influenza Types A & B (BETHEL) - Final
Nasal Swab Negative for Influenza A & B, NAAT
Negative results must be combined with clinical observations
and patient history.
Nucleic Acid Amplification test (NAAT)performed on the
[employer] platform.
Care Review
Plan reviewed with: Physician (Dr Reddy and Dr Jose G alvares)
--- NOTE | 2024-03-11 13:19 | CON.PS ---
Consultation - Plastic Surgery
Consultation Request
Date/Time Consultation Requested: 03/11/24
Date/Time Consultation Performed: 03/11/24
Performing Provider: CHUCKIE Reddy MD
Reason for Consultation: H/o Breast reconstruction
Medical History
-
Chief Complaint: Left breast reconstruction, asymmetry
History of Present Illness:
73yoF with h/o breast CA s/p L mstx radiation and implant based reconstruction. She reports asymmetry now that she's aged and desires consultation regarding options.
She is currently admitted for ongoing medical treatment related to c/f sepsis, lower extremity wounds.
Past Medical History
Past Medical History: Cancer
Past Surgical History: Other
Allergies / Home Medications
Allergy/AdvReac Type Severity Reaction Status Date / Time
No Known Allergies Allergy Verified 03/05/24 23:43
�Medication �Instructions �Recorded �Confirmed �Type
ascorbic acid (vitamin C) 500 mg 500 mg PO DAILY Supplement 03/06/24 03/06/24 History
tablet (Vitamin C)
calcium carbonate (Tums) 200 mg PO QIDPRN PRN gerd 03/06/24 03/06/24 History
latanoprost 0.005 % eye drops 1 drp BOTH EYES HS Eye Condition 03/06/24 03/06/24 History
naproxen sodium 220 mg tablet 220 mg PO BIDPRN PRN mild pain 03/06/24 03/06/24 History
(Aleve)
paroxetine HCl 10 mg tablet 10 mg PO DAILY Mental 03/06/24 03/06/24 History
Health/Anxiety
triamterene 37.5 1 tab PO DAILY Blood Pressure 03/06/24 03/06/24 History
mg-hydrochlorothiazide 25 mg tablet
Physical Exam
Vital Signs
Temp 98 F 03/11/24 07:30
Temp route: Oral 03/11/24 07:30
Pulse 95 03/11/24 08:06
Rhythm: Normal sinus rhythm 03/08/24 08:00
With- Prolonged QT interval 03/06/24 20:00
Resp Rate 16 03/11/24 07:30
Blood pressure 110/60 03/11/24 08:06
Blood pressure extremity used: Right upper arm 03/11/24 07:30
Position: Lying 03/11/24 07:30
MAP (cuff-Isabella Monitor) 82 03/08/24 12:25
MAP 64 03/06/24 02:17
SaO2 97 03/11/24 07:30
Nasal Cannula flow liters per minute 1 03/11/24 10:15
Oxygen Mode of Delivery Room air 03/10/24 23:32
Flow liters per minute # 1 03/11/24 10:15
Pulse Ox at Rest 94 03/08/24 12:36
Can the patient verbally communicate their pain? Yes 03/11/24 08:10
Pain scale rating: Pt states unable to rate 03/07/24 08:00
Actual Weight 168 lb 6.931 oz 03/06/24 06:00
Body Mass Index (BMI) 29.8 03/06/24 06:00
Supine- Blood Pressure 119/77 03/08/24 12:36
Supine- Pulse 73 03/08/24 12:36
Heart rate after activity 90 03/07/24 16:24
Blood pressure after activity 128/94 03/07/24 16:24
Oxygen Saturation with Activity 94 03/08/24 12:36
PEX:
No increased WOB
alert and interactive
on 02 via NC
Left breast with implant in place, no e/o severe contracture
No ongoing e/o breast infection
R breast with normal age related involutional changes
Lab Results
03/11/24 06:31
03/11/24 06:31
Assessment / Plan
-
h/o breast CA s/p radiation and L implant based reconstruction.
Currently asymmetric, desires consultation for options for balance.
We discussed that she has options available to her for balancing her breast reconstruction. These are elective in nature and best addressed in an outpatient consultation. Following her acute illness, she can arrange for an office visit to discuss
further. No current need for urgent or emergent plastic surgical care.
Ideally, an elective revision to breast reconstruction would be performed when the patients overall health status is optimized.
Data Reviewed
-
CT Scan: Image Personally Visualized and interpreted
--- NOTE | 2024-03-11 14:02 | W.PN.HOSP.TC ---
Today's Communication/Plan
-
Completing course of oral antibiotics on 03/12.
Ongoing placement/disposition efforts
Medically optimized
Assessment / Plan
Assessment / Plan
Impression:
Sepsis (tachycardia, low-grade fever, leukocytosis with left shift, hypotension)
Septic shock not responding to IV fluids and requiring vasopressor
Bilateral lower extremity/foot cellulitis with superficial wounds
Toxic metabolic encephalopathy secondary to above
Self limited episode of SVT.
Acute kidney injury
Lactic acidosis
Contraction alkalosis
Hyponatremia with hypovolemia
Hypokalemia
Diabetes, new diagnosis hemoglobin A1c 6.4
Abnormal LFT
Mild rhabdomyolysis, nontraumatic
Other conditions:
Essential hypertension
Breast carcinoma status posttreatment in remission.
Mild to moderate intellectual disability.
Plan:
Sepsis
Septic shock requiring vasopressors, now on oral midodrine
Bilateral lower extremity/feet wounds with cellulitis likely source
Presents with no respiratory or urinary symptoms.
COVID-19/influenza negative.
Urinalysis with microhematuria otherwise unremarkable
Chest x-ray and CT scan with no focal infiltrates
Reported loose stools as outpatient
Blood cultures no growth to date
Urine cultures no growth
CT of lower extremities with no evidence of collection, consistent with cellulitis
Antibiotics narrowed to Zosyn alone (status post single dose of vancomycin, clindamycin). Per ID: Transition Zosyn to Augmentin 875mg Po bid through 03/12/24.
ELIO with no evidence of arterial insufficiency
Podiatry input appreciated
ID input appreciated
Random serum cortisol and TSH appropriate
Had been off Levophed
Altered mental status suspected secondary to toxic metabolic cephalopathy in the settings of infection.
No focal findings on exam.
CT scan of the head with no acute abnormalities
Back to baseline
Self-limited episode of SVT.
Currently normal sinus rhythm.
Acute kidney injury
Suspect underling CKD stage IIIA
Urinalysis relatively bland other than mild micro hematuria.
Lactic acidosis improved
Off thiazide diuretic, BP stable.
Hold NSAIDs
Mild-moderate intellectual developmental delay
Hypokalemia, replaced
Non traumatic mild rhabdomyolysis with Mildly elevated transaminases AST at 80.
CPK trending down.
Pre- Diabetes.
Hemoglobin A1c 6.4.
Patient did not need coverage with insulin and she was upset with frequent Acu-checks
DC ISS
Try low dose Metformin, will d/w pharmacy, can also use low dose Glipizide but will have risk of hypoglycemia
Liberate diet more for her
CODE STATUS DNR.
Anticipated Discharge: 24 - 48 hours
Subjective/Interval History
-
Date of Service: March 11, 2024
Objective Data
-
Labs:
Laboratory Results
03/11/24
06:31
WBC 22.1 H
Hgb 11.4 L
Hct 34.7 L
Plt Count 311
Sodium 136
Potassium 3.3 L
Chloride 101
Carbon Dioxide 31 H
BUN 22 H
Creatinine 1.0
Glucose 113 H
Calcium 8.1 L
Vital Signs:
Vital Signs
Temp Pulse Resp BP Pulse Ox
98 F 88 16 115/64 95
03/11/24 07:30 03/11/24 13:21 03/11/24 07:30 03/11/24 13:21 03/11/24 13:19
I&O
03/10/24 03/11/24 03/12/24
06:59 06:59 06:59
Intake Total 1240 / 1240 2119
Balance 1240 / 1240 2119
Physical Exam
-
General: Well Developed and No Apparent Distress
HEENT: Normocephalic, Atraumatic and Moist Mucous Membranes
Respiratory: Clear to Auscultation
Cardiac: Regular Rhythm and S1/S2; Negative Murmur, Rub or Gallop
GI: Soft, Nontender, Nondistended and Normal Bowel Sounds; Negative Organomegaly
Rectal: Deferred by Provider
Musculoskeletal: No Clubbing, No Cyanosis and No Edema
Skin: Negative Rash
Neuro: Nonfocal/Grossly Intact
[2024-03-11] MEDS: TYLENOL 650 MG PO ×2 (15:36→20:44)
--- NOTE | 2024-03-11 15:39 | CS.PSYCHR ---
Consult Summary - Psychiatry
-
Pt is a 73 yo female with history of mild intellectual disability, admitted 03/05/24 after she was found down at home by her boyfriend. Sister, who is POA, reported some change in pt's mental status over the last few days, did not sound like herself
during their daily phone call to check in. Pt was admitted with SIRS, concern for sepsis, TME, MEET, mild rhabdomyolysis. Pt seen with sister present, is awake, alert, with sensorium intact today. Pt remains mildly confused about the sequence of
events of her fall prior to admission. She has some mild dysphoria today about her situation, but has been in a good mood overall, living independently and doing activities/going out as usual prior to the events above.
PMH: hx of breast cancer S/P left mastectomy, chemotx, radiation; GERD, HTN, anemia
Psych Hx: saw a therapist for a few years in the past. No inpatient. Prescribed Paxil for hx of anxiety attacks. Dx of Mild Intellectual disability, has ID supports coordinator at [facility]
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 Lived with , then moved into mother's house when pt's father in the mid . Pt's and pt continued to
live with her mother, who in September of 2022. Pt has remained in the house, living independently driving, getting around with a walker
MSE: alert, mostly oriented, calm, cooperative, making good eye contact. Pleasant affect, mood stable overall, denies depression. Speech/thought coherent/goal-directed. Insight appears fair to good
Imp: Unspecified anxiety, stable on existing med Paxil
Mild Intellectual disability
Delirium/TME- improving
Rec: continue existing medication Paxil 10 mg daily
No psychiatric intervention needed. Psychiatry will sign off
--- NOTE | 2024-03-11 16:30 | CM ---
Placed a call to [facility] assessment line [phone] to confirm receipt of information to initiate [facility] assessment. Have not as of yet received return call. All documentation that has been requested faxed to [facility]. Referrals
faxed to requested facilities including [facility].
Will call Malu at number above to get update regarding when patient can be evaluated if no return call has been received.
Plan: Case management will continue to follow and assist with dischage planning. SNF when assessed by [facility] and provided permission to pursue SNF placement.
[2024-03-11 16:31] VITALS: BP 115/57
[2024-03-11] MEDS: LOVENOX 40 MG SC (17:05)
[2024-03-11] MEDS: GLUCOPHAGE 500 MG PO (17:06)
[2024-03-11] MEDS: XALATAN OPHTHALMIC SOLUTION 1 DROP BOTH EYES (21:19)
[2024-03-11 21:57] LABS: Glucose - Point of Care 142 mg/dl (70-99)
[2024-03-11 23:47] VITALS: BP 129/56
[2024-03-12 07:54] VITALS: BP 101/67
[2024-03-12 08:59] VITALS: BP 122/71; PULSE 85; O2SAT 93
[2024-03-12] MEDS: VITAMIN C 500 MG PO (09:02)
[2024-03-12] MEDS: ProAmatine 10 MG PO ×3 (09:02→17:47)
[2024-03-12] MEDS: AUGMENTIN 875 MG/125 MG 1 TABLET PO ×2 (09:02→21:01)
[2024-03-12] MEDS: PAXIL 10 MG PO (09:02)
--- NOTE | 2024-03-12 10:02 | W.PN.ID1 ---
Date of Service
Date of Service: March 12, 2024
Today's Communication
- c/w Augmentin 875mg po bid through 03/15/24.
- stable for dc from ID perspective
Assessment / Plan
BL Diabetic Foot Infections - suspect with component of group A strep
Leukemoid reaction - improving
MEET
- c/w Augmentin 875mg po bid through 03/15/24.
- stable for dc from ID perspective
Chief Complaint
-: Cellulitis and Other (shock)
Subjective / Review of Systems
tmax 100.4 yesterday rectally not a jone fever
bp stable
Vital Signs / Physical Exam
Vital Signs
Vital Signs
Temp Pulse Resp BP Pulse Ox
98.4 F 82 20 101/67 94
03/12/24 07:54 03/12/24 09:02 03/12/24 07:54 03/12/24 09:02 03/12/24 07:54
Physical Exam
Constitutional: No Acute Distress
Cardiovascular: Regular Rate
Pulmonary: Symmetric and Non Labored
Gastrointestinal: Non Distended
Skin: Warm and Dry; Negative Rash or Jaundice
Wound: Other (superficial abrasions around the toes, no surrounding erythema)
Objective Data
Lab Data
Lab Results
03/11/24 06:31
03/11/24 06:31
Estimated Creat Clear 51 ml/min 03/11/24 06:31
Lactic Acid 1.5 mmol/L (0.7-2.0) 03/06/24 04:50
Total Bilirubin 0.3 mg/dl (0.2-1.3) 03/07/24 03:43
AST 42 U/L (14-36) H 03/07/24 03:43
ALT 16 U/L (0-35) 03/07/24 03:43
Alkaline Phosphatase 97 U/L (38-126) 03/07/24 03:43
Most recent labs reviewed.
Micro Results:
03/06/24 07:45 Blood Culture - Final
Blood/Venous No Growth - Final Report
03/06/24 07:45 Blood Culture - Final
Blood/Venous No Growth - Final Report
03/05/24 23:52 Urine Culture - Final
Urine Escherichia coli
03/06/24 07:45 MRSA Screen - Final
Nose No Methicillin Resistant Staphylococcus aureus isolated.
03/06/24 02:37 Influenza Types A & B (BETHEL) - Final
Nasal Swab Negative for Influenza A & B, NAAT
Negative results must be combined with clinical observations
and patient history.
Nucleic Acid Amplification test (NAAT)performed on the
[employer] platform.
--- NOTE | 2024-03-12 10:39 | CM ---
Reviewed the chart notes and spoke with Sylvia RODRIGUES. She is requesting the patient's ISP from [facility] and the psychiatric evaluation. Evaluation faxed to [facility]. Message left for Yuridia Daniels with [facility] department requesting the
patient's ISP. Sylvia is unable to schedule evaluation of patient until all paperwork is submitted. She has appointments available on and Monday of this week.
[2024-03-12 11:13] VITALS: BP 134/61
--- NOTE | 2024-03-12 15:38 | W.PN.HOSP.TC ---
Today's Communication/Plan
-
Pending placement
Assessment / Plan
Assessment / Plan
Impression:
Sepsis (tachycardia, low-grade fever, leukocytosis with left shift, hypotension)
Septic shock not responding to IV fluids and requiring vasopressor
Bilateral lower extremity/foot cellulitis with superficial wounds
Toxic metabolic encephalopathy secondary to above
Self limited episode of SVT.
Acute kidney injury
Lactic acidosis
Contraction alkalosis
Hyponatremia with hypovolemia
Hypokalemia
Diabetes, new diagnosis hemoglobin A1c 6.4
Abnormal LFT
Mild rhabdomyolysis, nontraumatic
Other conditions:
Essential hypertension
Breast carcinoma status posttreatment in remission.
Mild to moderate intellectual disability.
Plan:
Sepsis
Septic shock requiring vasopressors, now on oral midodrine
Bilateral lower extremity/feet wounds with cellulitis likely source
Presents with no respiratory or urinary symptoms.
COVID-19/influenza negative.
Urinalysis with microhematuria otherwise unremarkable
Chest x-ray and CT scan with no focal infiltrates
Reported loose stools as outpatient
Blood cultures no growth to date
Urine cultures no growth
CT of lower extremities with no evidence of collection, consistent with cellulitis
Antibiotics narrowed to Zosyn alone (status post single dose of vancomycin, clindamycin). Per ID: Transition Zosyn to Augmentin 875mg Po bid through 03/15/24.
ELIO with no evidence of arterial insufficiency
Podiatry input appreciated
ID input appreciated
Random serum cortisol and TSH appropriate
Had been off Levophed
Altered mental status suspected secondary to toxic metabolic cephalopathy in the settings of infection.
No focal findings on exam.
CT scan of the head with no acute abnormalities
Back to baseline
Self-limited episode of SVT.
Currently normal sinus rhythm.
Acute kidney injury
Suspect underling CKD stage IIIA
Urinalysis relatively bland other than mild micro hematuria.
Lactic acidosis improved
Off thiazide diuretic, BP stable.
Hold NSAIDs
Mild-moderate intellectual developmental delay
Hypokalemia, replaced
Non traumatic mild rhabdomyolysis with Mildly elevated transaminases AST at 80.
CPK trending down.
Pre- Diabetes.
Hemoglobin A1c 6.4.
Patient did not need coverage with insulin and she was upset with frequent Acu-checks
DC ISS
Try low dose Metformin, will d/w pharmacy, can also use low dose Glipizide but will have risk of hypoglycemia
Liberate diet more for her
CODE STATUS DNR.
Anticipated Discharge: 24 - 48 hours
Subjective/Interval History
-
Date of Service: March 12, 2024
Objective Data
-
Vital Signs:
Vital Signs
Temp Pulse Resp BP Pulse Ox
97.4 F 92 22 128/71 96
03/12/24 11:13 03/12/24 13:28 03/12/24 11:13 03/12/24 13:28 03/12/24 11:13
I&O
03/11/24 03/12/24 03/13/24
06:59 06:59 06:59
Intake Total 2119
Balance 2119
Physical Exam
-
General: Well Developed and No Apparent Distress
HEENT: Normocephalic, Atraumatic and Moist Mucous Membranes
Respiratory: Clear to Auscultation
Cardiac: Regular Rhythm and S1/S2; Negative Murmur, Rub or Gallop
GI: Soft, Nontender, Nondistended and Normal Bowel Sounds; Negative Organomegaly
Rectal: Deferred by Provider
Musculoskeletal: No Clubbing, No Cyanosis and No Edema
Skin: Negative Rash
Neuro: Nonfocal/Grossly Intact
[2024-03-12 16:06] VITALS: BP 129/62
[2024-03-12] MEDS: TYLENOL 650 MG PO (16:16)
[2024-03-12] MEDS: LOVENOX 40 MG SC (17:46)
[2024-03-12] MEDS: GLUCOPHAGE 500 MG PO (17:47)
[2024-03-12] MEDS: XALATAN OPHTHALMIC SOLUTION 1 DROP BOTH EYES (21:01)
[2024-03-12 21:38] LABS: Glucose - Point of Care 75 mg/dl (70-99)
[2024-03-12 23:24] VITALS: BP 131/65
[2024-03-13] MEDS: TYLENOL 650 MG PO ×2 (00:10→22:52)
[2024-03-13 07:30] VITALS: BP 116/67
[2024-03-13 08:00] LABS: Glucose - Point of Care 98 mg/dl (70-99)
[2024-03-13] MEDS: PAXIL 10 MG PO (08:03)
[2024-03-13] MEDS: AUGMENTIN 875 MG/125 MG 1 TABLET PO ×2 (08:03→20:34)
[2024-03-13] MEDS: VITAMIN C 500 MG PO (08:03)
[2024-03-13] MEDS: ProAmatine 10 MG PO ×3 (08:03→17:47)
[2024-03-13 11:32] LABS: Glucose - Point of Care 110 mg/dl (70-99)
--- NOTE | 2024-03-13 12:54 | W.PN.ID1 ---
Date of Service
Date of Service: March 13, 2024
Today's Communication
- c/w Augmentin 875mg po bid through 03/15/24.
- pending placement
ID service will no longer actively follow this patient please recall for further questions
Assessment / Plan
BL Diabetic Foot Infections - suspect with component of group A strep
Leukemoid reaction - improving
MEET
- c/w Augmentin 875mg po bid through 03/15/24.
- pending placement
ID service will no longer actively follow this patient please recall for further questions
Chief Complaint
-: Cellulitis and Other (shock)
Subjective / Review of Systems
afebrile
bp stable
Vital Signs / Physical Exam
Vital Signs
Vital Signs
Temp Pulse Resp BP Pulse Ox
98.1 F 97 16 116/67 95
03/13/24 07:30 03/13/24 07:30 03/13/24 07:30 03/13/24 07:30 03/13/24 07:30
Physical Exam
Constitutional: No Acute Distress
Cardiovascular: Regular Rate and S1/S2; Negative Murmur or Rub
Pulmonary: Clear and Symmetric; Negative Wheezes or Rales
Gastrointestinal: Soft, Non Tender, Non Distended and Normal Bowel Sounds
Skin: Warm and Dry; Negative Rash (no erythema around the excoriations on the toes) or Jaundice
Objective Data
Lab Data
Lab Results
03/11/24 06:31
03/11/24 06:31
Estimated Creat Clear 51 ml/min 03/11/24 06:31
Lactic Acid 1.5 mmol/L (0.7-2.0) 03/06/24 04:50
Total Bilirubin 0.3 mg/dl (0.2-1.3) 03/07/24 03:43
AST 42 U/L (14-36) H 03/07/24 03:43
ALT 16 U/L (0-35) 03/07/24 03:43
Alkaline Phosphatase 97 U/L (38-126) 03/07/24 03:43
Most recent labs reviewed. no labs today and not required from ID perspective
Micro Results:
03/06/24 07:45 Blood Culture - Final
Blood/Venous No Growth - Final Report
03/06/24 07:45 Blood Culture - Final
Blood/Venous No Growth - Final Report
03/05/24 23:52 Urine Culture - Final
Urine Escherichia coli
03/06/24 07:45 MRSA Screen - Final
Nose No Methicillin Resistant Staphylococcus aureus isolated.
03/06/24 02:37 Influenza Types A & B (BETHEL) - Final
Nasal Swab Negative for Influenza A & B, NAAT
Negative results must be combined with clinical observations
and patient history.
Nucleic Acid Amplification test (NAAT)performed on the
[employer] platform.
[2024-03-13 15:16] VITALS: BP 123/73
--- NOTE | 2024-03-13 16:32 | W.PN.HOSP.TC ---
Today's Communication/Plan
-
Placement
Assessment / Plan
Assessment / Plan
Impression:
Sepsis (tachycardia, low-grade fever, leukocytosis with left shift, hypotension)
Septic shock not responding to IV fluids and requiring vasopressor
Bilateral lower extremity/foot cellulitis with superficial wounds
Toxic metabolic encephalopathy secondary to above
Self limited episode of SVT.
Acute kidney injury
Lactic acidosis
Contraction alkalosis
Hyponatremia with hypovolemia
Hypokalemia
Diabetes, new diagnosis hemoglobin A1c 6.4
Abnormal LFT
Mild rhabdomyolysis, nontraumatic
Other conditions:
Essential hypertension
Breast carcinoma status posttreatment in remission.
Mild to moderate intellectual disability.
Plan:
Sepsis
Septic shock requiring vasopressors, now on oral midodrine
Bilateral lower extremity/feet wounds with cellulitis likely source
Presents with no respiratory or urinary symptoms.
COVID-19/influenza negative.
Urinalysis with microhematuria otherwise unremarkable
Chest x-ray and CT scan with no focal infiltrates
Reported loose stools as outpatient
Blood cultures no growth to date
Urine cultures no growth
CT of lower extremities with no evidence of collection, consistent with cellulitis
Antibiotics narrowed to Zosyn alone (status post single dose of vancomycin, clindamycin). Per ID: Transition Zosyn to Augmentin 875mg Po bid through 03/15/24.
ELIO with no evidence of arterial insufficiency
Podiatry input appreciated
ID input appreciated
Random serum cortisol and TSH appropriate
Had been off Levophed
Altered mental status suspected secondary to toxic metabolic cephalopathy in the settings of infection.
No focal findings on exam.
CT scan of the head with no acute abnormalities
Back to baseline
Self-limited episode of SVT.
Currently normal sinus rhythm.
Acute kidney injury
Suspect underling CKD stage IIIA
Urinalysis relatively bland other than mild micro hematuria.
Lactic acidosis improved
Off thiazide diuretic, BP stable.
Hold NSAIDs
Mild-moderate intellectual developmental delay
Hypokalemia, replaced
Non traumatic mild rhabdomyolysis with Mildly elevated transaminases AST at 80.
CPK trending down.
Pre- Diabetes.
Hemoglobin A1c 6.4.
Patient did not need coverage with insulin and she was upset with frequent Acu-checks
DC ISS
Try low dose Metformin, will d/w pharmacy, can also use low dose Glipizide but will have risk of hypoglycemia
Liberate diet more for her
CODE STATUS DNR.
Anticipated Discharge: 24 - 48 hours
Subjective/Interval History
-
Date of Service: March 13, 2024
Objective Data
-
Vital Signs:
Vital Signs
Temp Pulse Resp BP Pulse Ox
98.2 F 90 16 123/73 97
03/13/24 15:16 03/13/24 15:16 03/13/24 15:16 03/13/24 15:16 03/13/24 15:16
I&O
03/12/24 03/13/24 03/14/24
06:59 06:59 06:59
Intake Total 720 / 720
Balance 720 / 720
Physical Exam
-
General: Well Developed and No Apparent Distress
HEENT: Normocephalic, Atraumatic and Moist Mucous Membranes
Respiratory: Clear to Auscultation
Cardiac: Regular Rhythm and S1/S2; Negative Murmur, Rub or Gallop
GI: Soft, Nontender, Nondistended and Normal Bowel Sounds; Negative Organomegaly
Rectal: Deferred by Provider
Musculoskeletal: No Clubbing, No Cyanosis and No Edema
Skin: Negative Rash
Neuro: Nonfocal/Grossly Intact
[2024-03-13 16:39] LABS: Glucose - Point of Care 109 mg/dl (70-99)
--- NOTE | 2024-03-13 16:53 | CM ---
Addendum entered by Stacey Suarez RN 03/14/24 09:36:
ISP received from Dilcia Daniels at [facility]. ISP e-mailed securely to Sylvia Benitez at [facility] as requested. Update to CM.
Original Note:
Call placed to Sylvia Benitez at [facility] ([phone]). She stated she did not receive the Psych consult that was sent the other day. Psych Consult scanned and e-mailed securely to Sylvia at [email or web address]. She did respond confirming
she did receive the psych consult and that Paul from [facility] will be out around 12:30pm tomorrow to see patient. I also called Dilcia Kraft at [facility] to request a copy of the patient's ISP that Sylvia had requested. She asked that I e-mail her
my request at [email or web address] she will reply back with a copy of this patients ISP. E-mail request sent and am awaiting reply. Update to CM.
[2024-03-13] MEDS: LOVENOX 40 MG SC (17:47)
[2024-03-13] MEDS: GLUCOPHAGE 500 MG PO (17:47)
[2024-03-13] MEDS: XALATAN OPHTHALMIC SOLUTION 1 DROP BOTH EYES (20:35)
[2024-03-13 22:05] LABS: Glucose - Point of Care 108 mg/dl (70-99)
[2024-03-13 23:00] VITALS: BP 109/60
[2024-03-14 07:26] LABS: Glucose - Point of Care 101 mg/dl (70-99)
[2024-03-14 08:01] VITALS: BP 108/63
[2024-03-14] MEDS: AUGMENTIN 875 MG/125 MG 1 TABLET PO ×2 (08:59→21:49)
[2024-03-14] MEDS: PAXIL 10 MG PO (08:59)
[2024-03-14] MEDS: ProAmatine 10 MG PO ×3 (08:59→17:36)
[2024-03-14] MEDS: VITAMIN C 500 MG PO (08:59)
[2024-03-14] MEDS: TYLENOL 650 MG PO ×2 (09:03→17:35)
--- NOTE | 2024-03-14 10:00 | PTCARENOTE ---
Red rash on upper middle back and right knee observed. No complaints of itchiness. MD made aware.
[2024-03-14 11:41] LABS: Glucose - Point of Care 109 mg/dl (70-99)
[2024-03-14] MEDS: DESENEX/MITRAZOL/ZEASORB 1 APPLIC TOPICAL ×2 (11:51→21:49)
--- NOTE | 2024-03-14 13:01 | CM ---
Spoke with Paul from the [facility] who stated that the assessment is complete and call should be received once reviewed regarding determination. Attending updated.
Plan: Case management will continue to follow and assist with discharge planning. SNF when authorized by county.
[2024-03-14 15:11] VITALS: BP 141/62
--- NOTE | 2024-03-14 15:15 | W.PN.HOSP.TC ---
Today's Communication/Plan
-
Placement
Assessment / Plan
Assessment / Plan
Impression:
Sepsis (tachycardia, low-grade fever, leukocytosis with left shift, hypotension)
Septic shock not responding to IV fluids and requiring vasopressor
Bilateral lower extremity/foot cellulitis with superficial wounds
Toxic metabolic encephalopathy secondary to above
Self limited episode of SVT.
Acute kidney injury
Lactic acidosis
Contraction alkalosis
Hyponatremia with hypovolemia
Hypokalemia
Diabetes, new diagnosis hemoglobin A1c 6.4
Abnormal LFT
Mild rhabdomyolysis, nontraumatic
Other conditions:
Essential hypertension
Breast carcinoma status posttreatment in remission.
Mild to moderate intellectual disability.
Plan:
Sepsis
Septic shock requiring vasopressors, now on oral midodrine
Bilateral lower extremity/feet wounds with cellulitis likely source
Presents with no respiratory or urinary symptoms.
COVID-19/influenza negative.
Urinalysis with microhematuria otherwise unremarkable
Chest x-ray and CT scan with no focal infiltrates
Reported loose stools as outpatient
Blood cultures no growth to date
Urine cultures no growth
CT of lower extremities with no evidence of collection, consistent with cellulitis
Antibiotics narrowed to Zosyn alone (status post single dose of vancomycin, clindamycin). Per ID: Transition Zosyn to Augmentin 875mg Po bid through 03/15/24.
ELIO with no evidence of arterial insufficiency
Podiatry input appreciated
ID input appreciated
Random serum cortisol and TSH appropriate
Had been off Levophed
Altered mental status suspected secondary to toxic metabolic cephalopathy in the settings of infection.
No focal findings on exam.
CT scan of the head with no acute abnormalities
Back to baseline
Self-limited episode of SVT.
Currently normal sinus rhythm.
Acute kidney injury
Suspect underling CKD stage IIIA
Urinalysis relatively bland other than mild micro hematuria.
Lactic acidosis improved
Off thiazide diuretic, BP stable.
Hold NSAIDs
Mild-moderate intellectual developmental delay
Hypokalemia, replaced
Non traumatic mild rhabdomyolysis with Mildly elevated transaminases AST at 80.
CPK trending down.
Pre- Diabetes.
Hemoglobin A1c 6.4.
Patient did not need coverage with insulin and she was upset with frequent Acu-checks
DC ISS
Try low dose Metformin, will d/w pharmacy, can also use low dose Glipizide but will have risk of hypoglycemia
Liberate diet more for her
CODE STATUS DNR.
Anticipated Discharge: Within 24 hours
Subjective/Interval History
-
Date of Service: March 14, 2024
Objective Data
-
Vital Signs:
Vital Signs
Temp Pulse Resp BP Pulse Ox
98.3 F 96 16 141/62 92
03/14/24 15:11 03/14/24 15:11 03/14/24 15:11 03/14/24 15:11 03/14/24 15:11
I&O
03/13/24 03/14/24 03/15/24
06:59 06:59 06:59
Intake Total 720 / 720 1080 / 1080
Balance 720 / 720 1080 / 1080
Physical Exam
-
General: Well Developed and No Apparent Distress
HEENT: Normocephalic, Atraumatic and Moist Mucous Membranes
Respiratory: Clear to Auscultation
Cardiac: Regular Rhythm and S1/S2; Negative Murmur, Rub or Gallop
GI: Soft, Nontender, Nondistended and Normal Bowel Sounds; Negative Organomegaly
Rectal: Deferred by Provider
Musculoskeletal: No Clubbing, No Cyanosis and No Edema
Skin: Negative Rash
Neuro: Nonfocal/Grossly Intact
[2024-03-14 16:38] LABS: Glucose - Point of Care 114 mg/dl (70-99)
[2024-03-14] MEDS: LOVENOX 40 MG SC (17:35)
[2024-03-14] MEDS: GLUCOPHAGE 500 MG PO (17:36)
[2024-03-14] MEDS: NON-FORMULARY ITEM 1 UNIT OPHTH (21:50)
[2024-03-14] MEDS: XALATAN OPHTHALMIC SOLUTION BOTH EYES (23:18)
[2024-03-14 23:30] VITALS: BP 105/90
[2024-03-15 07:51] LABS: Glucose - Point of Care 105 mg/dl (70-99)
[2024-03-15 08:00] VITALS: BP 97/58
[2024-03-15] MEDS: PAXIL 10 MG PO (09:43)
[2024-03-15] MEDS: VITAMIN C 500 MG PO (09:43)
[2024-03-15] MEDS: AUGMENTIN 875 MG/125 MG 1 TABLET PO ×2 (09:43→21:37)
[2024-03-15] MEDS: ProAmatine 10 MG PO ×3 (09:48→18:47)
[2024-03-15] MEDS: DESENEX/MITRAZOL/ZEASORB 1 APPLIC TOPICAL ×2 (09:48→21:37)
[2024-03-15 10:49] LABS: Glucose - Point of Care 157 mg/dl (70-99)
[2024-03-15 15:03] VITALS: BP 97/66
[2024-03-15 16:54] LABS: Glucose - Point of Care 108 mg/dl (70-99)
--- NOTE | 2024-03-15 17:13 | W.PN.HOSP.TC ---
Today's Communication/Plan
-
Medically optimized and stable for placement
Assessment / Plan
Assessment / Plan
Impression:
Sepsis (tachycardia, low-grade fever, leukocytosis with left shift, hypotension)
Septic shock not responding to IV fluids and requiring vasopressor
Bilateral lower extremity/foot cellulitis with superficial wounds
Toxic metabolic encephalopathy secondary to above
Self limited episode of SVT.
Acute kidney injury
Lactic acidosis
Contraction alkalosis
Hyponatremia with hypovolemia
Hypokalemia
Diabetes, new diagnosis hemoglobin A1c 6.4
Abnormal LFT
Mild rhabdomyolysis, nontraumatic
Other conditions:
Essential hypertension
Breast carcinoma status posttreatment in remission.
Mild to moderate intellectual disability.
Plan:
Sepsis
Septic shock requiring vasopressors, now on oral midodrine
Bilateral lower extremity/feet wounds with cellulitis likely source
Presents with no respiratory or urinary symptoms.
COVID-19/influenza negative.
Urinalysis with microhematuria otherwise unremarkable
Chest x-ray and CT scan with no focal infiltrates
Reported loose stools as outpatient
Blood cultures no growth to date
Urine cultures no growth
CT of lower extremities with no evidence of collection, consistent with cellulitis
Antibiotics narrowed to Zosyn alone (status post single dose of vancomycin, clindamycin). Per ID: Transition Zosyn to Augmentin 875mg Po bid through 03/15/24.
ELIO with no evidence of arterial insufficiency
Podiatry input appreciated
ID input appreciated
Random serum cortisol and TSH appropriate
Had been off Levophed
Altered mental status suspected secondary to toxic metabolic cephalopathy in the settings of infection.
No focal findings on exam.
CT scan of the head with no acute abnormalities
Back to baseline
Self-limited episode of SVT.
Currently normal sinus rhythm.
Acute kidney injury
Suspect underling CKD stage IIIA
Urinalysis relatively bland other than mild micro hematuria.
Lactic acidosis improved
Off thiazide diuretic, BP stable.
Hold NSAIDs
Mild-moderate intellectual developmental delay
Hypokalemia, replaced
Non traumatic mild rhabdomyolysis with Mildly elevated transaminases AST at 80.
CPK trending down.
Pre- Diabetes.
Hemoglobin A1c 6.4.
Patient did not need coverage with insulin and she was upset with frequent Acu-checks
DC ISS
Try low dose Metformin, will d/w pharmacy, can also use low dose Glipizide but will have risk of hypoglycemia
Liberate diet more for her
CODE STATUS DNR.
Anticipated Discharge: 24 - 48 hours
Subjective/Interval History
-
Date of Service: March 15, 2024
Objective Data
-
Vital Signs:
Vital Signs
Temp Pulse Resp BP Pulse Ox
98.2 F 106 20 97/66 92
03/15/24 15:03 03/15/24 15:03 03/15/24 15:03 03/15/24 15:03 03/15/24 15:03
I&O
03/14/24 03/15/24 03/16/24
06:59 06:59 06:59
Intake Total 1080 / 1080 660 / 660
Balance 1080 / 1080 660 / 660
Physical Exam
-
General: Well Developed and No Apparent Distress
HEENT: Normocephalic, Atraumatic and Moist Mucous Membranes
Respiratory: Clear to Auscultation
Cardiac: Regular Rhythm and S1/S2; Negative Murmur, Rub or Gallop
GI: Soft, Nontender, Nondistended and Normal Bowel Sounds; Negative Organomegaly
Rectal: Deferred by Provider
Musculoskeletal: No Clubbing, No Cyanosis and No Edema
Skin: Negative Rash
Neuro: Nonfocal/Grossly Intact
[2024-03-15] MEDS: LOVENOX 40 MG SC (18:28)
[2024-03-15] MEDS: GLUCOPHAGE 500 MG PO (18:47)
[2024-03-15] MEDS: NON-FORMULARY ITEM 1 UNIT OPHTH (21:37)
[2024-03-15] MEDS: XALATAN OPHTHALMIC SOLUTION 1 DROP BOTH EYES (21:37)
[2024-03-15] MEDS: TYLENOL 650 MG PO (21:51)
[2024-03-15 22:09] LABS: Glucose - Point of Care 122 mg/dl (70-99)
[2024-03-15 22:40] VITALS: BP 105/61
[2024-03-16] VITALS (44 sets, daily range): BP systolic 46–177; BP diastolic 18–165
[2024-03-16 05:31] LABS: Glucose - Point of Care 134 mg/dl (70-99)
[2024-03-16] MEDS: NSS 1000 IV (05:42)
--- NOTE | 2024-03-16 06:00 | W.PN.UPDATE ---
Update Note
Progress Note Update
nursing notes slow speech overnight and patient not as animated as before. . ABG shows pH 7.5. Low grade rectal 100.1. Awaiting am labs.
[2024-03-16 06:08] LABS: B.E. -0.5 mmol/L; HCO3 21.1 mmol/L (21-28); O2 Saturation % 94.2 % (94-98); PCO2 27 mmHg (32-35); PO2 65 mmHg (83-108)
[2024-03-16] MEDS: TYLENOL 650 MG PO (06:10)
[2024-03-16 06:50] LABS: ALT (SGPT) 20 U/L (0-35); AST (SGOT) 102 U/L (14-36); Albumin 2.5 g/dl (3.5-5.0); Alkaline Phosphatase 117 U/L (38-126); Blood Urea Nitrogen 42 mg/dl (7-17); Calcium 8.1 mg/dl (8.4-10.2); Carbon Dioxide 18 mmol/L (22-30); Chloride 96 mmol/L (98-107); Estimated Creatinine Clearance 21 ml/min; Glucose 126 mg/dl (70-99); Potassium 4.3 mmol/L (3.5-5.1); Sodium 130 mmol/L (135-145); Total Bilirubin 0.7 mg/dl (0.2-1.3); Total Protein 5.5 g/dl (6.3-8.2); eGFR 21.06
[2024-03-16 06:53] LABS: Hematocrit 45.8 % (37.0-47.0); Hemoglobin 15.3 g/dL (12.0-16.0); Mean Corp Hgb Conc. 33.4 g/dL (33.0-37.0); Mean Corpuscular Hgb 26.7 pg (27.0-31.0); Mean Corpuscular Volume 79.8 fL (81.0-99.0); Mean Platelet Volume 11.3 fL (7.4-10.4); Platelet Count 235 10^3/uL (130-400); Red Blood Cell Count 5.74 10^6/uL (4.20-5.40); Red Cell Dist. Width 16.6 % (11.5-14.5); White Blood Cell Count 43.6 10^3/uL (4.8-10.8)
--- NOTE | 2024-03-16 07:35 | PTCARENOTE ---
Tech asked RN to come in to assess pt at 0520, pt w/ slower speech than baseline. Blood sugar 134, BP 99/58 and manual BP 90/48 w/ pt c/o dizziness. Rectal temp 100.1, 93% RA, HR 112. KELP CUTTER notified, labs and NSS @ 100mls/hr ordered. KELP CUTTER notified
about ABG results, Na 130 from 136, WBC 43.6 from 22.1, BUN 43 and creat 2.4. Results passed on to dayshift. Plan of care ongoing.
[2024-03-16 07:41] LABS: Absolute Neutrophils -Man Diff 41.4 10^3/uL (1.4-6.5); Band Neutrophils 11 % (0-3); Lymphocytes 1 % (20-51); Metamyelocytes 1 % (-); Myelocytes 3 % (-); Normal RBC Morphology Yes; Platelets Checked Yes; Segmented Neutrophils 84 % (42-75); Total Cells Counted 100
[2024-03-16 08:04] LABS: Glucose - Point of Care 130 mg/dl (70-99)
[2024-03-16] MEDS: ProAmatine 10 MG PO ×3 (08:21→17:32)
[2024-03-16] MEDS: PAXIL 10 MG PO (08:21)
[2024-03-16] MEDS: VITAMIN C 500 MG PO (08:21)
[2024-03-16] MEDS: LR 1000 IV ×2 (08:22→11:53)
[2024-03-16] MEDS: DESENEX/MITRAZOL/ZEASORB 1 APPLIC TOPICAL ×2 (08:22→21:27)
[2024-03-16 08:49] LABS: Lactic Acid 3.2 mmol/L (0.7-2.0)
[2024-03-16 09:04] LABS: Hematocrit 43.7 % (37.0-47.0); Hemoglobin 14.9 g/dL (12.0-16.0); Mean Corp Hgb Conc. 34.1 g/dL (33.0-37.0); Mean Corpuscular Volume 79.2 fL (81.0-99.0); Mean Platelet Volume 11.9 fL (7.4-10.4); Platelet Count 222 10^3/uL (130-400); Red Blood Cell Count 5.52 10^6/uL (4.20-5.40); Red Cell Dist. Width 16.5 % (11.5-14.5); White Blood Cell Count 43.4 10^3/uL (4.8-10.8)
[2024-03-16 10:28] LABS: ALT (SGPT) 20 U/L (0-35); AST (SGOT) 101 U/L (14-36); Albumin 2.4 g/dl (3.5-5.0); Alkaline Phosphatase 111 U/L (38-126); Blood Urea Nitrogen 45 mg/dl (7-17); Calcium 7.8 mg/dl (8.4-10.2); Carbon Dioxide 19 mmol/L (22-30); Chloride 97 mmol/L (98-107); Estimated Creatinine Clearance 20 ml/min; Glucose 133 mg/dl (70-99); Potassium 4.3 mmol/L (3.5-5.1); Sodium 130 mmol/L (135-145); Total Bilirubin 0.6 mg/dl (0.2-1.3); Total Protein 5.2 g/dl (6.3-8.2); eGFR 20.06
[2024-03-16 11:20] LABS: NT-proBNP 3660 pg/ml
[2024-03-16] MEDS: DUONEB 3 ML INH ×3 (11:40→20:48)
[2024-03-16 12:14] LABS: Glucose - Point of Care 134 mg/dl (70-99)
[2024-03-16 13:10] LABS: COVID-19 Antigen Negative (Negative)
[2024-03-16] MEDS: LASIX 40 MG IV (13:16)
--- NOTE | 2024-03-16 14:19 | W.PN.HOSP.TC ---
Addendum entered and electronically signed by Brad Leonard MD 03/17/24 15:44:
Patient quickly decompensated, with lethargy and hypoxia that worsened throughout the day. White count noted to be 44,000, and an MEET. CT imaging without contrast showing moderate pleural effusions as well as possible superimposed pneumonia.
Started on broad-spectrum antibiotics. Unfortunately due to continued worsening of blood pressures, probable septic shock requiring pressors, could not provide Lasix. Cardiology and direct care specialist were informed. Midline already in place. Was
transferred over to the ICU, noted to be in SVT and although initially started on norepinephrine, transition to phenylephrine. Patient's lactate continue to trend higher, expiring overnight.
Original Note:
Today's Communication/Plan
-
f/u ua, start abx if positive. F/u fever curve, wbc. f/u cdiff if diarrhea. IV lasix, ECHO. IF ua negative , then proceed with MRI.
Assessment / Plan
Assessment / Plan
Impression:
Sepsis (tachycardia, low-grade fever, leukocytosis with left shift, hypotension)
Septic shock not responding to IV fluids and requiring vasopressor
Bilateral lower extremity/foot cellulitis with superficial wounds
Toxic metabolic encephalopathy secondary to above
Self limited episode of SVT.
Acute kidney injury
Lactic acidosis
Contraction alkalosis
Hyponatremia with hypovolemia
Hypokalemia
Diabetes, new diagnosis hemoglobin A1c 6.4
Abnormal LFT
Mild rhabdomyolysis, nontraumatic
Other conditions:
Essential hypertension
Breast carcinoma status posttreatment in remission.
Mild to moderate intellectual disability.
Plan:
Sepsis
Septic shock requiring vasopressors, now on oral midodrine
Bilateral lower extremity/feet wounds with cellulitis likely source
Presents with no respiratory or urinary symptoms.
COVID-19/influenza negative.
Urinalysis with microhematuria otherwise unremarkable
Chest x-ray and CT scan with no focal infiltrates
Reported loose stools as outpatient
Blood cultures no growth to date
Urine cultures no growth
CT of lower extremities with no evidence of collection, consistent with cellulitis
Antibiotics narrowed to Zosyn alone (status post single dose of vancomycin, clindamycin). Per ID: Transition Zosyn to Augmentin 875mg Po bid through 03/15/24.
ELIO with no evidence of arterial insufficiency
Podiatry input appreciated
ID input appreciated
Random serum cortisol and TSH appropriate
Had been off Levophed
Altered mental status suspected secondary to toxic metabolic cephalopathy in the settings of infection.
No focal findings on exam.
CT scan of the head with no acute abnormalities
Back to baseline
Self-limited episode of SVT.
Currently normal sinus rhythm.
Acute kidney injury
Suspect underling CKD stage IIIA
Urinalysis relatively bland other than mild micro hematuria.
Lactic acidosis improved
Off thiazide diuretic, BP stable.
Hold NSAIDs
Mild-moderate intellectual developmental delay
Hypokalemia, replaced
Non traumatic mild rhabdomyolysis with Mildly elevated transaminases AST at 80.
CPK trending down.
Pre- Diabetes.
Hemoglobin A1c 6.4.
Patient did not need coverage with insulin and she was upset with frequent Acu-checks
DC ISS
Try low dose Metformin, will d/w pharmacy, can also use low dose Glipizide but will have risk of hypoglycemia
Liberate diet more for her
CODE STATUS DNR.
Update 03/16: WBC 44k; now hypoxic; cxr showing probably chf exacerbation. bnp 3660; ct head negative; hold on abx unless spikes fever. Given lasix; F/u UA; ECHO ordered; For AMS: await UA and start abx if positive.
Total time spent on today's encounter was 50 minutes which included time spent in counseling the patient/family regarding diagnosis and treatment plan as listed above, goals of care, and symptom management. Case was discussed with nursing staff,
specialists, and care coordinators/case management. All labs and imaging personally reviewed by me. Remainder the time spent in detailed review of previous records, lab data, imaging, and other medical provider documentation.
Anticipated Discharge: > 48 hours
Subjective/Interval History
-
Date of Service: March 16, 2024
more altered today, midly hypoxic, cxr with probably chf exacerbation; UA pending
Objective Data
-
Labs:
Laboratory Results
03/16/24 03/16/24 03/16/24
05:47 05:55 08:17
WBC 43.6 H* 43.4 H*
Hgb 15.3 D 14.9
Hct 45.8 43.7
Plt Count 235 D 222
HCO3 21.1
Sodium 130 L Cancelled
Potassium 4.3 Cancelled
Chloride 96 L Cancelled
Carbon Dioxide 18 L Cancelled
BUN 42 H Cancelled
Creatinine 2.4 H Cancelled
Glucose 126 H Cancelled
Calcium 8.1 L Cancelled
Total Bilirubin 0.7 Cancelled
AST 102 H Cancelled
ALT 20 Cancelled
Alkaline Phosphatase 117 Cancelled
03/16/24
10:06
WBC
Hgb
Hct
Plt Count
HCO3
Sodium 130 L
Potassium 4.3
Chloride 97 L
Carbon Dioxide 19 L
BUN 45 H
Creatinine 2.5 H
Glucose 133 H
Calcium 7.8 L
Total Bilirubin 0.6
AST 101 H
ALT 20
Alkaline Phosphatase 111
Vital Signs:
Vital Signs
Temp Pulse Resp BP Pulse Ox
97.3 F 130 22 125/96 97
03/16/24 08:11 03/16/24 12:30 03/16/24 11:48 03/16/24 12:30 03/16/24 11:48
I&O
03/15/24 03/16/24 03/17/24
06:59 06:59 06:59
Intake Total 660 / 660 420 / 420 80 / 80
Balance 660 / 660 420 / 420 80 / 80
Review of Systems
-
History Source: Patient
All other systems: Not reviewed unless documented
Data Reviewed
-
Diagnostic Radiology: Report Reviewed by me
CT Scan: Report Reviewed by me
Labs: Labs Reviewed by me
--- NOTE | 2024-03-16 16:36 | PTCARENOTE ---
Addendum entered by Tiffanie Mares RN 03/16/24 16:47:
pt has outstanding ECHO ordered
pt perineum and sacrum excoriated/red/bleeding. Lots of barrier ointment applied to pt, no brief, EMMANUELLE
pt feet cold with + weak pulses, +1 pit edema to b/l LE
pt continue to have macular red rash to b/l thighs and back
no allergy added to list, made aware by sister today
Original Note:
Pt AM labs results. WBC 43.6, resp 34, 88%% on 2L nc, increased to 5L nc stating 92%. pt speech is slow, pt able to state her name but unable to answer other questions. pt did state she did not feel well but was unable to give further information.
Dr. Leonard notified via tt at 8:52 AM. abd XR, CXR and head CT ordered, additional labs ordered. Midline placed by IV team this AM. 1000 ml LR fluid bolus ordered and administered.
pt sister/POA arrived to unit and discussed concerns with this nurse at the bedside. Dr. Leonard notified via tt that family was at the beside and would like to discuss plan of care
covid and flu sent to lab. resulted negative. stool sample sent to lab, negative for c. diff.
1254: IVF stopped, 1x order 40mg iv Lasix given to pt
1400 pt sister voiced concerns about pt hallucinating, agitation, twitching/flinching, kicking off covers, attempted to drink from her tissue box.
Dr. Leonard notified via tt. UA and straight cath order placed
pt incontinent, attempted straight cath for UA, unable to get much sample. Lab called and stated sample was not enough, new UA order placed.
1415 dr. leonard notified via tt about pt hallucinating, unable to get good pulse ox reading, pulse of in the low 80s on 5L nc, pt had x2 duoneb tx today. pt not eating. pt family brought in boost/ensure style of drink to try and get pt to eat.
-Chest CT ordered, IMU transfer order placed, resp came to the bedside to set up midflow for pt to be transported to CT scan
Resp therapy said they can start high flow when pt is transferred to IMU or ICU.
- Dr. Leonard at the bedside, discussed plan of care with family
[2024-03-16 17:47] LABS: Glucose - Point of Care 116 mg/dl (70-99)
[2024-03-16] MEDS: LEVOPHED 250 IV (18:02)
--- NOTE | 2024-03-16 18:04 | PHA.VAN.IN ---
Assessment
- Assessment
Renal Function: Unknown baseline (SCR increased during admission)
Concomitant Antimicrobials: piperacillin/tazobactam
initiated on vasopressor support
Plan
- Plan
Initial / Loading Dose: 2000mg - administration pending
Maintenance Regimen: dosing by level
Monitoring: random 03/17 0600
Pharmacokinetics Vancomycin I
- -
Patient Age: 73
Patient Sex: Female
Vancomycin Day #: 1
Indication: Pulmonary/Respiratory
Requesting Provider: Dr. Leonard
Pertinent Antimicrobial Allergies:
sulfamethoxazole/trimethoprim - rash
Height / Weight:
Height 5 ft 3 in
Actual Weight 76.4 kg
- Vital Signs / Lab Results
Temp Pulse Resp BP Pulse Ox
97.2 F 108 19 81/51 90
03/16/24 15:19 03/16/24 15:19 03/16/24 15:19 03/16/24 17:24 03/16/24 15:19
Lab Results - Hematology
03/16/24 03/16/24
05:47 08:17
WBC 43.6 H* 43.4 H*
Band Neutrophils 11 H
Lab Results - Chemistry
03/16/24 03/16/24 03/16/24
05:47 08:17 10:06
BUN 42 H Cancelled 45 H
Creatinine 2.4 H Cancelled 2.5 H
Estimated Creat Clear 21 Cancelled 20
Albumin 2.5 L Cancelled 2.4 L
03/16/24
08:17
Lactic Acid 3.2 H
Lab Results - Urine
03/16/24
14:56
Urine Nitrite (Reflex) Cancelled
Leukocyte Esterase Rfl Cancelled
Microbiology Results
03/16/24 14:53 C. difficile GDH Antigen & Toxins - Final
Feces/Stool Negative for toxigenic C.difficile
03/16/24 12:37 Influenza Types A & B (BETHEL) - Final
Nasal Swab Negative for Influenza A & B, NAAT
Negative results must be combined with clinical observations
and patient history.
Nucleic Acid Amplification test (NAAT)performed on the
[employer] NOW platform.
[2024-03-16] MEDS: ZOSYN 50 IV (18:05)
--- NOTE | 2024-03-16 18:20 | PTCARENOTE ---
pt returned from CT scan. 1x order of 80mg PO lasix. BP 76/54, rechecked 81/51. Dr. Leonard notified via tt at 1724. Held lasix. attempted to give scheduled midodrine, pt unable. pt was unable to suck water out of straw, started to blow air into
straw. pt unable to say her name. Pt opening eyes to voice and touch. pt on 15L midflow. Nursing color paste mixing supervisor made aware around 5:35, admissions made aware by . pt become more drowsy, hr increasing, sustaining in the 170s, BP unable to be calculated
by machine. This nurse called called ICU charge nurse to get bed, Dr. Leonard at the bedside. Pt transferred to ICU by this nurse and PCT Jud. Report given in ICU. Pt family taken to ICU by Dr. Leonard.
[2024-03-16 18:39] LABS: Glucose - Point of Care 110 mg/dl (70-99)
[2024-03-16 18:52] LABS: Venous Blood Gas B.E. -5.6 mmol/L (-4 to +4); Venous Blood Gas HCO3 14.4 mmol/L (22-27); Venous Blood Gas O2 Sat % 99.9 %; Venous Blood Gas pCO2 18 mmHg (35-48); Venous Blood Gas pH 7.51 (7.32-7.43); Venous Blood Gas pO2 161 mmHg (30-50)
--- NOTE | 2024-03-16 19:00 | PTCARENOTE ---
Pt. arrived from floor to rm 3360 hemodynamically unstable @ 1815. Dr. Leonard to bedside, aware of declining status. Unable to obtain further IV access, orders received for PICC line; VAT team made aware and to bedside. Report given to oncoming
shift.
[2024-03-16 19:07] LABS: Hemoglobin 14.6 g/dL (12.0-16.0); Lactic Acid 6.1 mmol/L (0.7-2.0); Mean Corpuscular Hgb 27.1 pg (27.0-31.0); Mean Corpuscular Volume 79.8 fL (81.0-99.0); PT 35.6 Sec (11.4-14.6); Platelet Count 251 10^3/uL (130-400); Red Blood Cell Count 5.39 10^6/uL (4.20-5.40); Red Cell Dist. Width 16.6 % (11.5-14.5); White Blood Cell Count 44.9 10^3/uL (4.8-10.8)
[2024-03-16 19:08] LABS: APTT 36.8 Sec (23.4-35.0)
[2024-03-16 19:19] LABS: ALT (SGPT) 23 U/L (0-35); AST (SGOT) 129 U/L (14-36); Alkaline Phosphatase 119 U/L (38-126); Blood Urea Nitrogen 48 mg/dl (7-17); Calcium 8.2 mg/dl (8.4-10.2); Carbon Dioxide 13 mmol/L (22-30); Chloride 98 mmol/L (98-107); Glucose 149 mg/dl (70-99); Potassium 4.7 mmol/L (3.5-5.1); Sodium 128 mmol/L (135-145); Total Bilirubin 0.7 mg/dl (0.2-1.3); Total Protein 4.6 g/dl (6.3-8.2)
[2024-03-16 19:20] LABS: Troponin I 0.065 ng/ml
[2024-03-16] MEDS: LOVENOX SC (19:29)
[2024-03-16 19:31] LABS: Estimated Creatinine Clearance 17 ml/min; eGFR 16.79
[2024-03-16] MEDS: VERSED 1 MG IV (19:34)
[2024-03-16] MEDS: OFIRMEV 100 IV (19:54)
[2024-03-16 19:58] LABS: Lactic Acid 6.4 mmol/L (0.7-2.0)
[2024-03-16] MEDS: SODIUM BICARBONATE 100 MEQ IV (20:01)
[2024-03-16] MEDS: NEO-SYNEPHRINE 250 IV (20:22)
[2024-03-16] MEDS: VANCOCIN 540 MG IV (20:34)
--- NOTE | 2024-03-16 22:17 | VATNOTE ---
Late entry: Picc ordered for levo. Pt. had a Midline inserted earlier today with much difficulty by VAT. VAT decided not to exchange rt. midline for Picc for fear of losing access. So it was decided to place Picc in left arm. When we entered pt.'s
room, there was no pink bracelet on left arm and an RN was attempting peripheral access in left arm. Also, the Attending MD was bedside attempting a failed IJ TLC. We explained our decision to use the left arm and the MD said okay. After Picc was
successfully inserted, a call to Kayla Cadet NP to place order okay to use left arm and endorsed.
[2024-03-16] MEDS: XALATAN OPHTHALMIC SOLUTION BOTH EYES (23:30)
[2024-03-16] MEDS: NON-FORMULARY ITEM OPHTH (23:30)
--- NOTE | 2024-03-16 23:40 | PTCARENOTE ---
~[id number]: Received patient awake and restless. SVT on the monitor with HR 177 on Levophed at 4 mcg/min. ITA Cadet at the bedside. EKG completed. Pt's temp 101.5. Bilateral feet and hands are very mottled and cold to the touch. Radial pulses
are weak but present. Bilateral DPs and PT's are absent with doppler. Popliteal pulses present with doppler. Per off going RN, pedal pulses were absent as well when checked. TIMBER RIDER rechecked bilateral DPs/PTs without success. Ofirmev administered.
Bicarb 2 amps administered. Patient placed on cooling blanket. LEvophed on hold and Andrea-synephrine initiated. Pt's HR 120s. Phenylephrine titrated as per protocol. Levophed restarted and Andrea weaned per TIMBER RIDER. Blood pressure taken via pt's legs. Pt's
pulse ox is unable to read on monitor. Pulse ox placed on pt's ear without improvement. Pt's on Highflow oxygen at 55L/100%. +BS. Yanes catheter is intact without urine. Maceration to groin region.Desenex applied. Family updated.
--- NOTE | 2024-03-16 23:52 | W.PN.UPDATE ---
Addendum entered and electronically signed by GRAY Luque 03/17/24 02:01:
0130 Update sister of declining condition: LA increase to 14.0, anuric, increase pressor requirements, multiple systems failure. �Family aware that prognosis�is poor, wants to honor DNR, not ready for comfort. Trial NIV.
Addendum entered and electronically signed by GRAY Luque 03/17/24 00:29:
PICC placed in left arm by IV Team. 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 ��Per IV team they were unable to access right side. Decision made to leave left PICC in place because it is the only form of central access overnight.�
Original Note:
Update Note
Progress Note Update
[id number] Notify by nurse patient does not have bilateral PT and DP pulses, does have by bilateral popliteal pulses. Discussed with vascular with will continue to optimize patient to increase circulation.
[2024-03-17] VITALS (14 sets, daily range): BP systolic 32–128; BP diastolic 18–89
[2024-03-17] MEDS: LEVOPHED 250 IV (00:42)
[2024-03-17 01:11] LABS: Blood Urea Nitrogen 48 mg/dl (7-17); Calcium 7.9 mg/dl (8.4-10.2); Carbon Dioxide 13 mmol/L (22-30); Chloride 97 mmol/L (98-107); Estimated Creatinine Clearance 15 ml/min; Glucose 50 mg/dl (70-99); Potassium 4.7 mmol/L (3.5-5.1); Sodium 132 mmol/L (135-145); eGFR 14.37
[2024-03-17] MEDS: DEXTROSE 50% SYRINGE 12.5 GRAMS IV ×2 (01:13→01:35)
[2024-03-17] MEDS: ZOSYN 50 IV (01:28)
[2024-03-17 01:36] LABS: B.E. -25.6 mmol/L; O2 Saturation % 89.3 % (94-98); PCO2 41 mmHg (32-35); PO2 77 mmHg (83-108)
[2024-03-17 01:47] LABS: O2 Therapy 50%
[2024-03-17 01:48] LABS: HCO3 7.5 mmol/L (21-28); pH 6.87 (7.35-7.45)
[2024-03-17 01:48] LABS: Glucose - Point of Care 17 mg/dl (70-99)
--- NOTE | 2024-03-17 02:15 | PTCARENOTE ---
[id number].. Patient's lab resulted for glucose of 50. dextrose 50% syringe 12.5 grams administered. Finger stick check resulted for 17 or the right hand digits. Rechecked with left hand digits and result remained 17. administered dextrose 50 % 12.5
grams. [employer] made aware. PEr [employer], check glucose via PICC line as the patient is clamped. PICC line flushed with 20 cc and wasted 10 cc blood. BG resulted for 237. rechecked after 15 minutes and BG 126. [employer] made aware. of results. Pt's groaning. Does not
follow commands.
Patient ABG resulted. [employer] made aware.
[2024-03-17 02:24] LABS: Glucose - Point of Care 126 mg/dl (70-99)
[2024-03-17] MEDS: SODIUM BICARBONATE 100 MEQ IV (02:24)
--- NOTE | 2024-03-17 03:24 | W.PN.DEATH ---
Pronouncement of
-
Called to see patient to pronounce.
No spontaneous heart tones or respirations noted.
Patient not responsive to verbal stimuli.
Patient is pronounced .
Time of : 02:56
Date of : 03/17/24
Cause of : multiple system failure due to septic shock
Family Notified: Yes
--- NOTE | 2024-03-17 04:00 | PTCARENOTE ---
[id number]: Difficulty attaining pt's blood pressure. Sodium Bicarb 2 amps administered. Patient placed on NIV 20/5 with rate of 30 and 100%. Patient is unresponsive. Afib RVR on the monitor with HR 165. EKG completed. VIDEO SOFTWARE ENGINEER at the bedside. See VIDEO SOFTWARE ENGINEER
note. The patient at 02:56. Awaiting family.
0315: Family called and will not be coming in.
0358: GOL called.
--- NOTE | 2024-03-18 10:15 | CM ---
Placed a call to Sylvia at the office on aging who was following patient for level 2. She was notified that patient . She stated that she will shut case.
== END 2024-03-17 04:30 | disposition expired | DRG 871 ==
LOC: ICU 03:03
PROVIDERS: Internal Medicine; Internal Medicine Critical Care Medicine; Internal Medicine Infectious Disease; Nurse Practitioner Primary Care; Registered Nurse; ADMITTING PHYSICIAN Internal Medicine; ATTENDING PHYSICIAN Internal Medicine; CONSULT PHYSICIAN Internal Medicine Critical Care Medicine; CONSULT PHYSICIAN Student in an Organized Health Care Education/Training Program; CONSULT PHYSICIAN Surgery Plastic and Reconstructive Surgery; EMERGENCY PHYSICIAN Student in an Organized Health Care Education/Training Program; FAMILY PHYSICIAN Family Medicine; OTHER PHYSICIAN Psychiatry & Neurology Psychiatry; OTHER PHYSICIAN Student in an Organized Health Care Education/Training Program
DX: A41.9 Sepsis, unspecified organism (principal); J18.9 Pneumonia, unspecified organism; R65.21 Severe sepsis with septic shock; J90 Pleural effusion, not elsewhere classified; E87.20 Acidosis, unspecified; I47.10 Supraventricular tachycardia, unspecified; J98.11 Atelectasis; N17.9 Acute kidney failure, unspecified; M62.82 Rhabdomyolysis; E87.1 Hypo-osmolality and hyponatremia; L03.115 Cellulitis of right lower limb; L03.116 Cellulitis of left lower limb; R09.02 Hypoxemia; Z66 Do not resuscitate; E11.9 Type 2 diabetes mellitus without complications; W19.XXXA Unspecified fall, initial encounter; Z85.3 Personal history of malignant neoplasm of breast; Z90.12 Acquired absence of left breast and nipple; K21.9 Gastro-esophageal reflux disease without esophagitis; I10 Essential (primary) hypertension; D64.9 Anemia, unspecified; Z98.82 Breast implant status; Z92.21 Personal history of antineoplastic chemotherapy; Z92.3 Personal history of irradiation; D72.823 Leukemoid reaction; E87.8 Other disorders of electrolyte and fluid balance, not elsewhere classified; F71 Moderate intellectual disabilities; Z79.899 Other long term (current) drug therapy; F41.9 Anxiety disorder, unspecified; Z11.52 Encounter for screening for COVID-19
CPT/HCPCS: 36600; 70450; 71045; 71046; 71250; 73700; 74018; 80048; 80053; 80202; 81003; 81015; 82533; 82550; 82805; 82962; 83036; 83605; 83735; 83880; 84100; 84145; 84443; 84484; 85025; 85027; 85610; 85730; 86850; 86900; 86901; 87040; 87070; 87077; 87086; 87186; 87324; 87449; 87502; 87811; 93005; 93922; 93925; 94640; 96361; 96365; 96366; 96367; 97163; 97167; 97530; 97535; 99285; P9047